=== PATIENT | female | born 1945 | race Caucasian/White ===

== ENCOUNTER → 2017-08-28 | Outpatient (CLI) | payer MEDICARE, OTHER ==
[2017-08-28 12:08] LABS: Basophils # (auto) 0.1 uL; Basophils % (auto) 1.8 % (0.0-2.0); Eosinophils # (auto) 0.2 uL; Eosinophils % (auto) 3.3 % (0.0-7.0); Hemoglobin 13.3 g/dL (12.2-16.2); Lymphocytes % (auto) 27.2 % (10.0-50.0); Mean Corpuscular Hemoglobin 32.2 pg (28.0-32.0); Mean Corpuscular Hgb Conc. 33.2 g/dL (32.0-36.0); Mean Corpuscular Volume 97.1 fL (80.0-100.0); Monocytes # (auto) 0.9 uL; Monocytes % (auto) 12.7 % (0.0-12.0); Nucleated Red Blood Cells % 0.2 %; Platelet Count (auto) 322 10^3/uL (140-450); Red Blood Cells 4.13 10^6/uL (4.0-5.20); Red Cell Distribution Width 14.2 % (11.8-14.3); White Blood Cell 7.3 10^3/uL (4.4-10.8)
[2017-08-28 12:26] LABS: BUN/Creatinine Ratio 19.8; Calcium 9.9 mg/dL (8.5-10.1); Potassium 4.1 mmol/L (3.5-5.1)
== END | disposition home or self-care (01) ==
LOC: LAB 09:43
PROVIDERS: ATTEND Internal Medicine Cardiovascular Disease
DX: D64.9 Anemia, unspecified (principal); I10 Essential (primary) hypertension
CPT/HCPCS: 36415; 80048; 85025

== ENCOUNTER → 2017-08-30 | Outpatient (CLI) | payer MEDICARE, OTHER ==
[~2017-08-30] MED LIST: FUROSEMIDE 20 MG/2 ML VIAL IV SCH; FUROSEMIDE 20 MG/2 ML VIAL ONE; FUROSEMIDE 40 MG/4 ML VIAL ONE
[2017-08-30 11:30] VITALS: BP 152/78
[2017-08-30 14:30] VITALS: BP 148/85
== END | disposition home or self-care (01) ==
LOC: CHF HDHVI 11:01
PROVIDERS: ATTEND Internal Medicine Cardiovascular Disease
DX: E87.70 Fluid overload, unspecified (principal); R60.0 Localized edema
CPT/HCPCS: 96365; 96366; G0463; J1940

== ENCOUNTER → 2017-09-01 | Outpatient (CLI) | payer MEDICARE, OTHER ==
[~2017-09-01] MED LIST changes: -FUROSEMIDE 20 MG/2 ML VIAL IV SCH; -FUROSEMIDE 20 MG/2 ML VIAL ONE; +FUROSEMIDE IV SCH; +SODIUM CHL 0.9% IV SCH
[2017-09-01 13:30] VITALS: BP 158/83
== END | disposition home or self-care (01) ==
LOC: CHF HDHVI 10:59
PROVIDERS: ATTEND Internal Medicine
DX: I11.0 Hypertensive heart disease with heart failure (principal); I50.9 Heart failure, unspecified; I25.10 Atherosclerotic heart disease of native coronary artery without angina pectoris; E78.5 Hyperlipidemia, unspecified
CPT/HCPCS: 93306; 96365; 96366; G0463; J1940

== ENCOUNTER → 2017-09-05 | Outpatient (CLI) | payer MEDICARE, OTHER ==
[2017-09-05 11:45] VITALS: BP 187/80
[2017-09-05 12:15] VITALS: BP 150/72
== END | disposition home or self-care (01) ==
LOC: Rad HDHVI 10:36
PROVIDERS: ATTEND Internal Medicine
DX: I82.3 Embolism and thrombosis of renal vein (principal)
CPT/HCPCS: 93970; G0463

== ENCOUNTER → 2018-03-30 | Outpatient (CLI) | payer MEDICARE, OTHER ==
[2018-03-30 12:30] LABS: Urine Blood Negative /uL (Negative); Urine Specific Gravity 1.013 (1.001-1.035)
[2018-03-30 12:42] LABS: Basophils # (auto) 0.1 uL; Basophils % (auto) 1.2 % (0.0-2.0); Eosinophils # (auto) 0.2 uL; Eosinophils % (auto) 3.9 % (0.0-7.0); Hematocrit 39.2 % (36.0-46.0); Hemoglobin 13.3 g/dL (12.2-16.2); Lymphocytes # (auto) 1.7 uL; Lymphocytes % (auto) 30.4 % (10.0-50.0); Mean Corpuscular Hemoglobin 32.5 pg (28.0-32.0); Mean Corpuscular Hgb Conc. 33.8 g/dL (32.0-36.0); Mean Corpuscular Volume 96.1 fL (80.0-100.0); Monocytes # (auto) 0.8 uL; Monocytes % (auto) 13.2 % (0.0-12.0); Neutrophils # (auto) 2.9 uL; Neutrophils % (auto) 51.3 % (37.0-80.0); Nucleated Red Blood Cells % 0.1 %; Platelet Count (auto) 301 10^3/uL (140-450); Red Blood Cells 4.08 10^6/uL (4.0-5.20); Red Cell Distribution Width 13.9 % (11.8-14.3); White Blood Cell 5.7 10^3/uL (4.4-10.8)
[2018-03-30 12:56] LABS: Albumin 3.7 g/dL (3.4-5.0); BUN/Creatinine Ratio 22.9; Bilirubin, Total 0.6 mg/dL (0.2-1.0); Calcium 9.4 mg/dL (8.5-10.1); Potassium 3.9 mmol/L (3.5-5.1)
[2018-03-30 13:03] LABS: Free T4 (Free Thyroxine) 1.66 ng/dL (0.89-1.76)
== END | disposition home or self-care (01) ==
LOC: LAB 08:59
PROVIDERS: ATTEND Internal Medicine
DX: Z00.01 Encounter for general adult medical examination with abnormal findings (principal); E03.9 Hypothyroidism, unspecified; E55.9 Vitamin D deficiency, unspecified; E11.9 Type 2 diabetes mellitus without complications; D51.9 Vitamin B12 deficiency anemia, unspecified; N39.0 Urinary tract infection, site not specified; I10 Essential (primary) hypertension
CPT/HCPCS: 36415; 80053; 80061; 81003; 82306; 82607; 83036; 84439; 84443; 85025; 87086

== ENCOUNTER → 2018-11-19 | Outpatient (CLI) | payer MEDICARE, OTHER ==
[2018-11-19 16:06] LABS: Urine Blood 1+ /uL (Negative); Urine Specific Gravity 1.021 (1.001-1.035)
[2018-11-19 16:12] LABS: Basophils # (auto) 0.2 uL; Basophils % (auto) 1.8 % (0.0-2.0); Eosinophils # (auto) 0.7 uL; Eosinophils % (auto) 7.6 % (0.0-7.0); Hematocrit 38.9 % (36.0-46.0); Hemoglobin 12.9 g/dL (12.2-16.2); Lymphocytes # (auto) 2.1 uL; Lymphocytes % (auto) 24.4 % (10.0-50.0); Mean Corpuscular Hemoglobin 31.2 pg (28.0-32.0); Mean Corpuscular Hgb Conc. 33.2 g/dL (32.0-36.0); Monocytes # (auto) 0.8 uL; Monocytes % (auto) 9.5 % (0.0-12.0); Neutrophils # (auto) 4.9 uL; Neutrophils % (auto) 56.7 % (37.0-80.0); Nucleated Red Blood Cells % 0.1 %; Platelet Count (auto) 370 10^3/uL (140-450); Red Blood Cells 4.14 10^6/uL (4.0-5.20); Red Cell Distribution Width 13.5 % (11.8-14.3); White Blood Cell 8.7 10^3/uL (4.4-10.8)
[2018-11-19 16:18] LABS: Free T4 (Free Thyroxine) 1.43 ng/dL (0.89-1.76)
[2018-11-19 16:23] LABS: Albumin 3.2 g/dL (3.4-5.0); Calcium 9.2 mg/dL (8.5-10.1); Potassium 3.5 mmol/L (3.5-5.1)
[2018-11-19 16:28] LABS: BUN/Creatinine Ratio 25.4; Bilirubin, Total 0.4 mg/dL (0.2-1.0); Total Protein 7.9 g/dL (6.4-8.2)
== END | disposition home or self-care (01) ==
LOC: LAB 10:27
PROVIDERS: ATTEND Internal Medicine
DX: N39.0 Urinary tract infection, site not specified (principal); E03.9 Hypothyroidism, unspecified; E55.9 Vitamin D deficiency, unspecified; D51.9 Vitamin B12 deficiency anemia, unspecified; Z79.899 Other long term (current) drug therapy
CPT/HCPCS: 36415; 80053; 80061; 81003; 82306; 82607; 83036; 84439; 84443; 85025

== ENCOUNTER → 2019-05-13 | Outpatient (CLI) | payer MEDICARE, OTHER ==
[2019-05-13 12:29] LABS: Free T4 (Free Thyroxine) 1.49 ng/dL (0.89-1.76)
[2019-05-13 12:32] LABS: T3 Total 0.75 ng/mL (0.60-1.81)
== END | disposition home or self-care (01) ==
LOC: LAB 10:28
PROVIDERS: ATTEND Internal Medicine
DX: E03.9 Hypothyroidism, unspecified (principal)
CPT/HCPCS: 36415; 84436; 84439; 84443; 84480

== ENCOUNTER → 2019-07-26 | Outpatient (CLI) | payer MEDICARE, OTHER ==
[~2019-07-26] MED LIST changes: -FUROSEMIDE 40 MG/4 ML VIAL ONE; -FUROSEMIDE IV SCH; +HYDR12.56 PO; +LEVO112T4 PO; +LISI40TA PO; -SODIUM CHL 0.9% IV SCH
[2019-07-26 15:40] LABS: Basophils # (auto) 0.2 uL; Eosinophils # (auto) 0.1 uL; Monocytes # (auto) 0.9 uL; Neutrophils # (auto) 5.6 uL; Nucleated Red Blood Cells % 0.1 %; White Blood Cell 8.4 10^3/uL (4.4-10.8)
[2019-07-26 15:42] LABS: Basophils % (auto) 2.9 % (0.0-2.0); Eosinophils % (auto) 1.1 % (0.0-7.0); Hematocrit 34.4 % (36.0-46.0); Hemoglobin 11.2 g/dL (12.2-16.2); Lymphocytes # (auto) 1.5 uL; Lymphocytes % (auto) 18.3 % (10.0-50.0); Mean Corpuscular Hemoglobin 28.8 pg (28.0-32.0); Mean Corpuscular Hgb Conc. 32.6 g/dL (32.0-36.0); Mean Corpuscular Volume 88.3 fL (80.0-100.0); Neutrophils % (auto) 66.7 % (37.0-80.0); Platelet Count (auto) 466 10^3/uL (140-450); Red Blood Cells 3.89 10^6/uL (4.0-5.20); Red Cell Distribution Width 19.6 % (11.8-14.3)
[2019-07-26 15:51] LABS: Albumin 2.4 g/dL (3.4-5.0); Calcium 9.6 mg/dL (8.5-10.1)
[2019-07-26 15:55] LABS: BUN/Creatinine Ratio 8.1; Bilirubin, Total 0.4 mg/dL (0.2-1.0); Total Protein 7.9 g/dL (6.4-8.2)
[2019-07-26 16:09] LABS: Potassium 2.8 mmol/L (3.5-5.1)
== END | disposition home or self-care (01) ==
LOC: Rad HDHVI 13:01
PROVIDERS: ATTEND Internal Medicine Cardiovascular Disease
DX: J98.11 Atelectasis (principal); D64.9 Anemia, unspecified; I10 Essential (primary) hypertension; K75.0 Abscess of liver; J90 Pleural effusion, not elsewhere classified; L92.8 Other granulomatous disorders of the skin and subcutaneous tissue; M47.899 Other spondylosis, site unspecified
CPT/HCPCS: 36415; 74150; 80053; 85025

== ENCOUNTER → 2019-08-28 | Outpatient (CLI) | payer MEDICARE, OTHER ==
[~2019-08-28] MED LIST changes: +IOHEXOL 350 MG/ML 100ML IJ ONE; +READI-CAT 2 (BARIUM SULF)(VANILLA SMOOTHIE) 450ML ONE
[2019-08-28 11:49] VITALS: BP 105/69
--- NOTE | 2019-08-28 12:00 | NUR ---
IV insertion IV access obtained, via clean sterile technique by inserting 22 gauge catheter at RW after 1 attempt(s). IV secured properly. No trauma to site. Patient tolerated procedure well. STAT LABS SENT
[2019-08-28 13:10] LABS: Basophils # (auto) 0.2 uL; Basophils % (auto) 2.6 % (0.0-2.0); Eosinophils # (auto) 0.3 uL; Eosinophils % (auto) 3.4 % (0.0-7.0); Hematocrit 43.5 % (36.0-46.0); Hemoglobin 14.1 g/dL (12.2-16.2); Lymphocytes # (auto) 1.8 uL; Lymphocytes % (auto) 21.6 % (10.0-50.0); Mean Corpuscular Hemoglobin 30.1 pg (28.0-32.0); Mean Corpuscular Hgb Conc. 32.4 g/dL (32.0-36.0); Monocytes # (auto) 0.7 uL; Monocytes % (auto) 8.4 % (0.0-12.0); Neutrophils # (auto) 5.2 uL; Platelet Count (auto) 380 10^3/uL (140-450); Red Blood Cells 4.68 10^6/uL (4.0-5.20); Red Cell Distribution Width 19.6 % (11.8-14.3); White Blood Cell 8.2 10^3/uL (4.4-10.8)
[2019-08-28 13:30] LABS: BUN/Creatinine Ratio 23.3; Calcium 12.4 mg/dL (8.5-10.1); Potassium 5.1 mmol/L (3.5-5.1)
--- NOTE | 2019-08-28 13:50 | NUR ---
LAB RESULTS IN [facility] 1.63, INFORMED, IV CONTRAST CHANGED TO ORAL CONTRAST.
--- NOTE | 2019-08-28 14:15 | NUR ---
IV removal IV DC'd with sterile technique, catheter fully intact. Pressure dressing applied to site. Patient tolerated procedure well.
[2019-08-28 14:30] VITALS: BP 129/76
--- NOTE | 2019-08-28 14:30 | NUR ---
[facility] Discharge Instructions See e-MAR for any mediations given with this visit. Patient education given on disease process. Patient verbalized understanding. Previous labs reviewed. Patient discharged in stable condition with after care instructions and follow up appointment.
== END | disposition home or self-care (01) ==
LOC: Rad HDHVI 11:40
PROVIDERS: ATTEND Internal Medicine Cardiovascular Disease
DX: K75.0 Abscess of liver (principal); I12.9 Hypertensive chronic kidney disease with stage 1 through stage 4 chronic kidney disease, or unspecified chronic kidney disease; N18.3 Chronic kidney disease, stage 3 (moderate); K57.90 Diverticulosis of intestine, part unspecified, without perforation or abscess without bleeding; R10.9 Unspecified abdominal pain; D64.9 Anemia, unspecified; E03.9 Hypothyroidism, unspecified; I25.2 Old myocardial infarction; Z79.02 Long term (current) use of antithrombotics/antiplatelets
CPT/HCPCS: 36415; 74150; 80048; 85025; G0463; Q9967

== ENCOUNTER → 2019-12-13 | Outpatient (CLI) | payer MEDICARE, OTHER ==
[~2019-12-13] MED LIST changes: -IOHEXOL 350 MG/ML 100ML IJ ONE; -READI-CAT 2 (BARIUM SULF)(VANILLA SMOOTHIE) 450ML ONE
== END | disposition home or self-care (01) ==
LOC: Rad HDHVI 10:57
PROVIDERS: ATTEND Internal Medicine Cardiovascular Disease
DX: R07.9 Chest pain, unspecified (principal); I10 Essential (primary) hypertension; R20.0 Anesthesia of skin
CPT/HCPCS: 93306

== ENCOUNTER → 2020-01-06 | Outpatient (CLI) | payer MEDICARE, OTHER ==
[~2020-01-06] VITALS: Ht 162.6 cm; Wt 86.2 kg
[~2020-01-06] MED LIST changes: +ADENOSINE 72 MG in GIVE UN-DILUTED 0 ML IV ONE; +ADENOSINE 90 MG/30 ML INJ IV ONE; -LISI40TA PO; +LISI40TA11 PO
== END | disposition home or self-care (01) ==
LOC: Rad HDHVI 13:19
PROVIDERS: ATTEND Internal Medicine Cardiovascular Disease
DX: I10 Essential (primary) hypertension (principal); Z82.49 Family history of ischemic heart disease and other diseases of the circulatory system
CPT/HCPCS: 78452; 93005; 96374; 96375; A9500; J0153

== ENCOUNTER → 2020-01-10 | Outpatient (CLI) | payer MEDICARE, OTHER ==
[~2020-01-10] MED LIST changes: -ADENOSINE 72 MG in GIVE UN-DILUTED 0 ML IV ONE; -ADENOSINE 90 MG/30 ML INJ IV ONE; +READI-CAT 2 (BARIUM SULF)(VANILLA SMOOTHIE) 450ML ONE
== END | disposition home or self-care (01) ==
LOC: Rad HDHVI 10:57
PROVIDERS: ATTEND Internal Medicine Cardiovascular Disease
DX: I70.0 Atherosclerosis of aorta (principal); R10.9 Unspecified abdominal pain; K86.89 Other specified diseases of pancreas; D73.89 Other diseases of spleen; K57.30 Diverticulosis of large intestine without perforation or abscess without bleeding
CPT/HCPCS: 74176

== ENCOUNTER → 2020-01-16 | Outpatient (CLI) | payer MEDICARE, OTHER ==
[~2020-01-16] MED LIST changes: +LISI40TA PO; -LISI40TA11 PO; -READI-CAT 2 (BARIUM SULF)(VANILLA SMOOTHIE) 450ML ONE
[2020-01-16 11:07] LABS: Calcium 10.7 mg/dL (8.5-10.1)
[2020-01-16 11:09] LABS: BUN/Creatinine Ratio 25.9
[2020-01-16 11:17] LABS: Potassium 4.2 mmol/L (3.5-5.1)
== END | disposition home or self-care (01) ==
LOC: LAB 09:59
PROVIDERS: ATTEND Internal Medicine Cardiovascular Disease
DX: R79.9 Abnormal finding of blood chemistry, unspecified (principal)
CPT/HCPCS: 36415; 80048

== ENCOUNTER → 2020-07-16 | Outpatient (CLI) | payer MEDICARE, OTHER ==
[~2020-07-16] MED LIST changes: -LISI40TA PO; +LISI40TA11 PO
[2020-07-16 12:01] LABS: Urine Blood Negative /uL (Negative); Urine Specific Gravity 1.023 (1.001-1.035)
[2020-07-16 12:11] LABS: Basophils # (auto) 0.2 10 ^3/uL (0-0.2); Basophils % (auto) 2.5 % (0.0-2.0); Eosinophils # (auto) 0.4 10 ^3/uL (0-0.8); Eosinophils % (auto) 6.5 % (0.0-7.0); Hemoglobin 11.4 g/dL (12.2-16.2); Lymphocytes # (auto) 2.8 10 ^3/uL (0.4-5.4); Lymphocytes % (auto) 43.8 % (10.0-50.0); Mean Corpuscular Hemoglobin 32.3 pg (28.0-32.0); Mean Corpuscular Hgb Conc. 32.6 g/dL (32.0-36.0); Mean Corpuscular Volume 99.2 fL (80.0-100.0); Monocytes # (auto) 0.6 10 ^3/uL (0-1.3); Monocytes % (auto) 9.8 % (0.0-12.0); Neutrophils # (auto) 2.4 10 ^3/uL (1.6-8.6); Neutrophils % (auto) 37.4 % (37.0-80.0); Platelet Count (auto) 258 10^3/uL (140-450); Red Blood Cells 3.53 10^6/uL (4.0-5.20); Red Cell Distribution Width 13.8 % (11.8-14.3); White Blood Cell 6.4 10^3/uL (4.4-10.8)
[2020-07-16 12:16] LABS: Potassium 4.2 mmol/L (3.5-5.1)
[2020-07-16 12:24] LABS: Albumin 3.5 g/dL (3.4-5.0); BUN/Creatinine Ratio 20.6; Bilirubin, Total 0.4 mg/dL (0.2-1.0); Calcium 10.1 mg/dL (8.5-10.1); Total Protein 7.4 g/dL (6.4-8.2)
[2020-07-16 12:27] LABS: Free T4 (Free Thyroxine) 1.25 ng/dL (0.89-1.76)
== END | disposition home or self-care (01) ==
LOC: LAB 11:02
PROVIDERS: ATTEND Internal Medicine Cardiovascular Disease
DX: D51.3 Other dietary vitamin B12 deficiency anemia (principal); I10 Essential (primary) hypertension; E11.9 Type 2 diabetes mellitus without complications; E55.9 Vitamin D deficiency, unspecified; R00.2 Palpitations; R53.1 Weakness; R30.0 Dysuria
CPT/HCPCS: 36415; 80053; 80061; 81003; 82306; 82607; 83036; 84439; 84443; 85025; 87086

== ENCOUNTER → 2020-12-31 | Outpatient (CLI) | payer MEDICARE, OTHER | END | disposition home or self-care (01) | LOC: Rad HDHVI 13:02 | PROVIDERS: ATTEND Internal Medicine Cardiovascular Disease | DX: I10 Essential (primary) hypertension (principal); R06.02 Shortness of breath | CPT/HCPCS: 93306 ==

== ENCOUNTER → 2021-01-07 | Outpatient (CLI) | payer MEDICARE, OTHER ==
[2021-01-07 11:41] LABS: Basophils # (auto) 0.1 10 ^3/uL (0-0.2); Basophils % (auto) 1.2 % (0.0-2.0); Eosinophils # (auto) 0.2 10 ^3/uL (0-0.8); Eosinophils % (auto) 2.8 % (0.0-7.0); Hematocrit 35.4 % (36.0-46.0); Hemoglobin 11.9 g/dL (12.2-16.2); Lymphocytes # (auto) 3.1 10 ^3/uL (0.4-5.4); Lymphocytes % (auto) 38.7 % (10.0-50.0); Mean Corpuscular Hemoglobin 33.5 pg (28.0-32.0); Mean Corpuscular Hgb Conc. 33.6 g/dL (32.0-36.0); Mean Corpuscular Volume 99.7 fL (80.0-100.0); Monocytes # (auto) 0.7 10 ^3/uL (0-1.3); Monocytes % (auto) 9.1 % (0.0-12.0); Neutrophils # (auto) 3.9 10 ^3/uL (1.6-8.6); Neutrophils % (auto) 48.2 % (37.0-80.0); Platelet Count (auto) 223 10^3/uL (140-450); Red Blood Cells 3.55 10^6/uL (4.0-5.20); Red Cell Distribution Width 13.9 % (11.8-14.3); Urine Blood Negative /uL (Negative); Urine Specific Gravity 1.008 (1.001-1.035)
[2021-01-07 11:49] LABS: Albumin 3.6 g/dL (3.4-5.0); Calcium 9.5 mg/dL (8.5-10.1); Potassium 4.2 mmol/L (3.5-5.1)
[2021-01-07 11:55] LABS: BUN/Creatinine Ratio 30.4; Bilirubin, Total 0.6 mg/dL (0.2-1.0); Total Protein 7.3 g/dL (6.4-8.2)
[2021-01-07 12:00] LABS: Free T4 (Free Thyroxine) 1.57 ng/dL (0.89-1.76)
== END | disposition home or self-care (01) ==
LOC: LAB 09:34
PROVIDERS: ATTEND Internal Medicine Cardiovascular Disease
DX: D51.3 Other dietary vitamin B12 deficiency anemia (principal); D64.9 Anemia, unspecified; E11.9 Type 2 diabetes mellitus without complications; E55.9 Vitamin D deficiency, unspecified; I10 Essential (primary) hypertension; R00.2 Palpitations; R53.1 Weakness; R30.0 Dysuria
CPT/HCPCS: 36415; 80053; 80061; 81003; 82306; 82607; 83036; 84439; 84443; 85025

== ENCOUNTER → 2022-03-07 | Outpatient (CLI) | payer MEDICARE, OTHER | END | disposition home or self-care (01) | LOC: Rad HDHVI 13:00 | PROVIDERS: ATTEND Internal Medicine Cardiovascular Disease | DX: I34.0 Nonrheumatic mitral (valve) insufficiency (principal); R07.89 Other chest pain; R06.02 Shortness of breath | CPT/HCPCS: 93306 ==

== ENCOUNTER → 2022-03-21 | Outpatient (CLI) | payer MEDICARE, OTHER | END | disposition home or self-care (01) | LOC: Rad HDHVI 11:04 | PROVIDERS: ATTEND Internal Medicine Cardiovascular Disease | DX: E78.5 Hyperlipidemia, unspecified (principal); I10 Essential (primary) hypertension | CPT/HCPCS: 93880 ==

== ENCOUNTER → 2022-04-05 | Outpatient (CLI) | payer MEDICARE, OTHER ==
[2022-04-05 12:28] LABS: Urine Blood Negative /uL (Negative); Urine Specific Gravity 1.012 (1.001-1.035)
[2022-04-05 12:37] LABS: Basophils # (auto) 0.1 10 ^3/uL (0-0.2); Basophils % (auto) 1.9 % (0.0-2.0); Eosinophils # (auto) 0.3 10 ^3/uL (0-0.8); Eosinophils % (auto) 3.9 % (0.0-7.0); Hematocrit 36.3 % (36.0-46.0); Hemoglobin 11.7 g/dL (12.2-16.2); Lymphocytes # (auto) 2.7 10 ^3/uL (0.4-5.4); Lymphocytes % (auto) 37.9 % (10.0-50.0); Mean Corpuscular Hemoglobin 30.7 pg (28.0-32.0); Mean Corpuscular Hgb Conc. 32.1 g/dL (32.0-36.0); Mean Corpuscular Volume 95.7 fL (80.0-100.0); Monocytes # (auto) 0.7 10 ^3/uL (0-1.3); Monocytes % (auto) 10.3 % (0.0-12.0); Neutrophils # (auto) 3.2 10 ^3/uL (1.6-8.6); Nucleated Red Blood Cells % 0.1 %; Red Cell Distribution Width 13.8 % (11.8-14.3)
[2022-04-05 13:02] LABS: Albumin 3.3 g/dL (3.4-5.0); BUN/Creatinine Ratio 24.3; Bilirubin, Total 0.5 mg/dL (0.2-1.0); Calcium 10.6 mg/dL (8.5-10.1); Total Protein 7.6 g/dL (6.4-8.2)
[2022-04-05 13:10] LABS: Free T4 (Free Thyroxine) 2.09 ng/dL (0.89-1.76)
== END | disposition home or self-care (01) ==
LOC: LAB 10:12
PROVIDERS: ATTEND Internal Medicine Cardiovascular Disease
DX: I10 Essential (primary) hypertension (principal); E55.9 Vitamin D deficiency, unspecified; N39.0 Urinary tract infection, site not specified; D51.3 Other dietary vitamin B12 deficiency anemia; D64.9 Anemia, unspecified; E11.9 Type 2 diabetes mellitus without complications; R00.2 Palpitations; R53.1 Weakness; R30.0 Dysuria
CPT/HCPCS: 36415; 80053; 80061; 81003; 82306; 82607; 83036; 84439; 84443; 85025; 87086; 87088; 87186

== ENCOUNTER → 2022-08-17 | Outpatient (CLI) | payer MEDICARE, OTHER | END | disposition home or self-care (01) | LOC: LAB 10:31 | PROVIDERS: ATTEND Internal Medicine Cardiovascular Disease | DX: E03.9 Hypothyroidism, unspecified (principal) | CPT/HCPCS: 36415; 84439; 84443 ==

== ENCOUNTER → 2022-11-14 | Outpatient (CLI) | payer MEDICARE, OTHER ==
[~2022-11-14] MED LIST changes: +B CO OR; +BIOTPOW17 XX; +CALC600T16 PO; +CHOL50007 PO; +KRIL1000 PO; +LACTCAP35 OR; +MULT-733 PO; +POM; +POTA99TA3 PO
[2022-11-14 12:20] VITALS: BP 148/77
[2022-11-14 12:36] VITALS: BP 141/74
== END | disposition home or self-care (01) ==
LOC: Rad HDHVI 12:08
PROVIDERS: ATTEND Internal Medicine Cardiovascular Disease
DX: J84.10 Pulmonary fibrosis, unspecified (principal); R06.02 Shortness of breath; R00.1 Bradycardia, unspecified
CPT/HCPCS: 71046; 93005; G0463

== ENCOUNTER 2022-11-17 08:44 | Day surgery (SDC) | payer MEDICARE, OTHER ==
[2022-11-14 15:17] LABS: Basophils # (auto) 0.1 10 ^3/uL (0-0.2); Basophils % (auto) 1.2 % (0.0-2.0); Eosinophils # (auto) 0.1 10 ^3/uL (0-0.8); Eosinophils % (auto) 1.1 % (0.0-7.0); Hematocrit 41.8 % (36.0-46.0); Hemoglobin 14.2 g/dL (12.2-16.2); Lymphocytes # (auto) 2.6 10 ^3/uL (0.4-5.4); Lymphocytes % (auto) 28.2 % (10.0-50.0); Mean Corpuscular Hemoglobin 32.6 pg (28.0-32.0); Mean Corpuscular Volume 95.8 fL (80.0-100.0); Monocytes # (auto) 0.8 10 ^3/uL (0-1.3); Monocytes % (auto) 8.4 % (0.0-12.0); Neutrophils # (auto) 5.6 10 ^3/uL (1.6-8.6); Neutrophils % (auto) 61.1 % (37.0-80.0); Nucleated Red Blood Cells % 0.1 %; Red Blood Cells 4.37 10^6/uL (4.0-5.20); Red Cell Distribution Width 13.3 % (11.8-14.3); White Blood Cell 9.2 10^3/uL (4.4-10.8)
[2022-11-14 15:38] LABS: Partial Thromboplastin Time 25.1 sec (24.6-33.4)
[2022-11-14 16:16] LABS: Calcium 11.5 mg/dL (8.5-10.1); Potassium 3.9 mmol/L (3.5-5.1)
[2022-11-14 16:17] LABS: BUN/Creatinine Ratio 26.8 (10.0-20.0)
[~2022-11-17] VITALS: Ht 162.6 cm; Wt 83.9 kg
[~2022-11-17 08:44] MED LIST changes: -HYDR12.56 PO
[2022-11-17] MEDS ORDERED: VANCOMYCIN 1GM/250ML 250 ML IV ONE ×2 (10:00→13:00)
[2022-11-17] MEDS ORDERED: VANCOMYCIN HCL 1000 MG VL ONE (12:59)
[2022-11-17] MEDS ORDERED: MIDAZOLAM HCL 2MG/2ML 2ml VIAL (1mg/ml) ONE (13:00)
[2022-11-17] MEDS ORDERED: fentaNYL CITRATE 100 MCG/2 ML VL ONE (13:00)
[2022-11-17] MEDS ORDERED: LIDOCAINE 2%HCL (LOCAL ANESTH.) INJ 20ML MDV ONE (13:32)
[2022-11-17 14:30] VITALS: BP 124/82
[2022-11-17 14:48] VITALS: BP 138/78
[2022-11-17 15:03] VITALS: BP 143/80
[2022-11-17 15:19] VITALS: BP 151/87
== END 2022-11-17 16:20 | disposition home or self-care (01) ==
LOC: CATH 08:44
PROVIDERS: ATTEND Internal Medicine Cardiovascular Disease
DX: I49.5 Sick sinus syndrome (principal); I48.91 Unspecified atrial fibrillation; E78.5 Hyperlipidemia, unspecified; I48.92 Unspecified atrial flutter; Z79.899 Other long term (current) drug therapy; Z79.01 Long term (current) use of anticoagulants; I48.0 Paroxysmal atrial fibrillation
CPT/HCPCS: 33208; 36415; 71045; 80048; 85025; 85610; 85730; C1785; C1894; C1898; J2250; J3010; J3370; 99152

== ENCOUNTER → 2022-11-18 | Outpatient (CLI) | payer MEDICARE, OTHER | END | disposition home or self-care (01) | LOC: Rad HDHVI 15:00 | PROVIDERS: ATTEND Internal Medicine Cardiovascular Disease | DX: T81.9XXA Unspecified complication of procedure, initial encounter (principal); Z95.0 Presence of cardiac pacemaker; Z98.890 Other specified postprocedural states; X58.XXXA Exposure to other specified factors, initial encounter; Y93.89 Activity, other specified; Y92.89 Other specified places as the place of occurrence of the external cause; Y99.8 Other external cause status | CPT/HCPCS: 71046 ==

== ENCOUNTER → 2023-05-05 | Outpatient (CLI) | payer MEDICARE, OTHER ==
[~2023-05-05] MED LIST changes: -LISI40TA11 PO; +LISI40TA16 PO
== END | disposition home or self-care (01) ==
LOC: Rad HDHVI 11:02
PROVIDERS: ATTEND Internal Medicine Cardiovascular Disease
DX: R51.9 Headache, unspecified (principal)
CPT/HCPCS: 70450

== ENCOUNTER → 2023-05-08 | Outpatient (CLI) | payer MEDICARE, OTHER | END | disposition home or self-care (01) | LOC: Rad HDHVI 14:00 | PROVIDERS: ATTEND Internal Medicine Cardiovascular Disease | DX: I34.81 Nonrheumatic mitral (valve) annulus calcification (principal); I11.9 Hypertensive heart disease without heart failure | CPT/HCPCS: 93306 ==

== ENCOUNTER → 2023-05-17 | Outpatient (CLI) | payer MEDICARE, OTHER | END | disposition home or self-care (01) | LOC: Rad HDHVI 12:54 | PROVIDERS: ATTEND Internal Medicine Cardiovascular Disease | DX: I10 Essential (primary) hypertension (principal) | CPT/HCPCS: 93880 ==

== ENCOUNTER → 2024-07-18 | Outpatient (CLI) | payer MEDICARE, OTHER ==
[~2024-07-18] MED LIST changes: -KRIL1000 PO; +KRIL1CAP15 PO
== END | disposition home or self-care (01) ==
LOC: Rad HDHVI 09:01
PROVIDERS: ATTEND Internal Medicine Cardiovascular Disease
DX: I11.0 Hypertensive heart disease with heart failure (principal); I50.23 Acute on chronic systolic (congestive) heart failure
CPT/HCPCS: 93306

== ENCOUNTER → 2024-07-29 | Outpatient (CLI) | payer MEDICARE, OTHER ==
[~2024-07-29] VITALS: Ht 162.6 cm; Wt 88.5 kg
[~2024-07-29] MED LIST changes: +ADENOSINE 74 MG in GIVE UN-DILUTED 0 ML IV ONE; +ADENOSINE 90 MG/30 ML INJ IV ONE; +SOTA80TA PO
== END | disposition home or self-care (01) ==
LOC: Rad HDHVI 13:58
PROVIDERS: ATTEND Internal Medicine Cardiovascular Disease
DX: R06.02 Shortness of breath (principal); I48.0 Paroxysmal atrial fibrillation; R00.2 Palpitations; I49.5 Sick sinus syndrome; I50.23 Acute on chronic systolic (congestive) heart failure; I11.0 Hypertensive heart disease with heart failure; E78.00 Pure hypercholesterolemia, unspecified; Z82.49 Family history of ischemic heart disease and other diseases of the circulatory system; Z95.0 Presence of cardiac pacemaker
CPT/HCPCS: 78452; 93005; 96374; 96375; A9500; J0153

== ENCOUNTER 2024-08-05 07:01 | Inpatient (IN) | payer MEDICARE, OTHER ==
[~2024-08-05] VITALS: Ht 162.6 cm; Wt 99.9 kg
[~2024-08-05 07:01] MED LIST changes: -ADENOSINE 74 MG in GIVE UN-DILUTED 0 ML IV ONE; -ADENOSINE 90 MG/30 ML INJ IV ONE; -POM
[2024-08-05] MEDS: ceFAZolin 2 GM/D5W100ml 100 ML IV ONE (07:34)
[2024-08-05] MEDS: CELECOXIB 100 MG CAP ONE (08:05)
[2024-08-05] MEDS: CEFEPIME 1GM/ 50ML 50 ML IV ONE (08:26)
[2024-08-05] MEDS: ACETAMINOPHEN IV 1000 MG/100ML (10MG/ML) IV ONE (08:30)
[2024-08-05] MEDS: PREGABALIN CAPSULE 75 MG CAP PO ONE (08:30)
[2024-08-05] MEDS: CELECOXIB 100 MG CAP PO ONE (08:30)
[2024-08-05] MEDS ORDERED: MORPHINE SULF PF 5 MG/10 ML VIAL ONE (08:50)
[2024-08-05] MEDS: TRANEXAMIC ACID 20 ML ONE (08:51)
[2024-08-05] MEDS: KETOROLAC TROMETH 30 MG/ML 1ML VIAL ONE (08:51)
[2024-08-05] MEDS ORDERED: fentaNYL CITRATE 100 MCG/2 ML VL ONE (09:00)
[2024-08-05] MEDS ORDERED: MIDAZOLAM HCL 2MG/2ML 2ml VIAL (1mg/ml) ONE (09:00)
[2024-08-05] MEDS: LACTATED RINGER'S 1,000 ML IV SCH (09:15)
[2024-08-05] MEDS ORDERED: MORPHINE SULFATE INJ 2 MG/ml SYRG IV PRN (09:15)
[2024-08-05] MEDS ORDERED: HYDROmorphone HCL 2 MG/ML VL/or syr IV PRN ×3 (09:15→14:45)
[2024-08-05] MEDS ORDERED: ONDANSETRON HCL 4 MG/2 ML VIAL IV PRN (09:15)
[2024-08-05] MEDS ORDERED: NITROGLYCERIN 0.4 MG SL TAB SL PRN (09:15)
[2024-08-05] MEDS ORDERED: OXYCODONE W/ ACETAMINOPHEN 5/325MG TABLET PO PRN (09:15)
[2024-08-05] MEDS ORDERED: ePHEDrine SULFATE 50 MG/ML AMP ONE (09:48)
[2024-08-05] MEDS: SOTALOL HCL 80 MG TAB PO SCH (10:00)
[2024-08-05] MEDS: DOCUSATE SOD 100 MG CAP PO SCH (10:00)
[2024-08-05] MEDS: ENOXAPARIN SOD 40 MG/0.4 ML SYRINGE SC SCH (10:00)
[2024-08-05] MEDS: CEFEPIME 1GM/ 50ML 50 ML IV SCH (10:00)
[2024-08-05] MEDS: BUPIVACAINE 0.25% INJ 50ML VIAL ONE (10:18)
[2024-08-05] MEDS: VANCOMYCIN HCL 1000 MG VL IR ONE (10:18)
[2024-08-05 10:42] VITALS: PULSE 91; RESP 12; O2SAT 100
[2024-08-05] MEDS: ONDANSETRON HCL 4 MG/2 ML VIAL IV ONE (11:00)
[2024-08-05] MEDS ORDERED: ACETAMINOPHEN IV 1000 MG/100ML (10MG/ML) IV PRN (11:00)
--- NOTE | 2024-08-05 11:13 | DVH ---
CLINICAL INFORMATION: Postop right total knee arthroplasty. TECHNIQUE: 3 views of the right knee were obtained. COMPARISON: None FINDINGS: Postsurgical changes of right total knee arthroplasty. The prosthesis is in satisfactory al ignment and position. Soft tissue swelling and gas within the soft tissues adjacent to the surgical s ite consistent with recent postoperative changes. Cutaneous dalila overlie the anterior aspect of th e right knee. IMPRESSION: Postsurgical changes of right total knee arthroplasty in satisfactory alignment and position as descr ibed above.
[2024-08-05] MEDS ORDERED: ACCU-CHEK COMFORT CURVE STRIP VI SCH (11:30)
--- NOTE | 2024-08-05 12:27 | DVHPN2 ---
Progress Note - Dictate Date Seen: Aug 05, 2023 Medical Necessity Reason Pt with a Central, PICC or Fol: No Subjective PT WELL KNOWN TO ME S/P TOTAL RIGHT KNEE ARTHROPLASTY POD 0 ON 08/05/24 The patient who is a 77-year-old with history of hypertension, hypothyroidism. Now with sick sinus syndrome, underlying rhythm is paroxysmal atrial fibrillation, atrial flutter with variable rate and with beta blockade she becomes bradycardic with pauses greater than 2.4 seconds. The patient is now to undergo dual chamber permanent pacemaker implantation. The patient aware of the risks and benefits. She understands and agrees. PERTINENT MEDICAL HISTORY: Significant for obesity. REVIEW OF SYSTEMS: Denies any melena, hematochezia, no bleeding diathesis. No hematemesis, hemoptysis. No history of hematuria. No renal disease. At this time, denies any lung disease. Denies any CVAs, thromboembolic event. Denies any seizure disorder, movement disorder. No neurological disorders. Denies any GI symptoms. No liver disease. No renal dysfunction. No history of IBS. No history of IBD. No history of any bleeding at this time. No pancreatic issues as well. No neurological issues as stated above. She has sick sinus syndrome with shortness of breath, lethargy and fatigue. Denies any fever or chills. She is COVID negative. Denies any recent infectious etiology. No UTI demonstrated. No bladder issues as well. vital signs Vital Sign Date Time Temp Pulse Resp B/P (MAP) Pulse Ox O2 Delivery O2 Flow Rate FiO2 08/05/24 11:10 91 12 88/52 (64) 100 08/05/24 10:42 97.2 97.2 08/05/24 10:42 Mask 7.0 100 medications Current Medications Medications Dose Ordered Sig/María Route Start Time Stop Time Status Last Admin Dose Admin Levothyroxine Sodium 112 mcg QAM PO 08/06/24 07:00 Sotalol HCl 40 mg BID PO 08/05/24 10:00 Lisinopril 40 mg DAILY PO 08/06/24 10:00 Patient Own Medication 99 mg DAILY PO 08/05/24 10:00 UNV Lactated Ringer's 1,000 ml @ 100 mls/hr Q10H IV 08/05/24 09:15 Sodium Chloride 10 ml Q8HR IV 08/05/24 14:00 Cefazolin Sodium 50 ml @ 50 mls/hr Q6H IV 08/05/24 09:15 08/05/24 22:14 Oxycodone/ Acetaminophen 1 tab Q4HP PRN PO 08/05/24 09:15 Hydromorphone HCl 1 mg Q2HP PRN IV 08/05/24 09:15 Ondansetron HCl 4 mg Q6HP PRN IV 08/05/24 09:15 Docusate Sodium 100 mg Q12HR PO 08/05/24 10:00 Diagnostic Test (Pha) 1 strip ACHS 08/05/24 11:30 Enoxaparin Sodium 40 mg DAILY SC 08/05/24 10:00 Nitroglycerin 0.4 mg Q5MINP PRN SL 08/05/24 09:15 Morphine Sulfate 2 mg Q30M PRN IV 08/05/24 09:15 Cefepime HCl 50 ml @ 12.5 mls/hr DAILY IV 08/05/24 10:00 objective VITAL SIGNS: Blood pressure is 88/70, pulse of 70, O2 saturation 95% on room air. HEENT: Pupils are reactive. Funduscopic exam is benign. No papilledema, no AV nicking, no exudates. Sclerae are anicteric. Conjunctivae are within normal limits. Extraocular muscles are intact. Tympanic membranes are negative. No sinus tenderness. Oral mucosa moist. Posterior pharynx without any exudate. NECK: No JVD appreciated. Carotid pulses are 2+ symmetrical. No cervical adenopathy, no supraclavicular adenopathy. PULMONARY: Clear to auscultation. CARDIOVASCULAR: Irregularly irregular at this time. PMI is not displaced. There are no murmurs or gallops appreciated. ABDOMEN: Soft, nontender, normal bowel sounds. Liver approximately 5 cm. Spleen tip nonpalpable. No epigastric tenderness. No CVA tenderness. No suprapubic tenderness. Stool guaiac is negative. NEUROLOGIC: The patient is intact. EXTREMITIES: 1+ pulses, 1+ edema. EXT: S/P Rt knee total arthroplasty Problem List S/P RIGHT TOTAL KNEE ARTHROPLASTY HTN SSS S/P PPI AFIB HYPERCOAGULABLE STATE Assessment/Plan PT MONITOR H/H DVT PROPHYLAXIS Plan discussed with: Patient Critical Care Time(min): 35 SHILPA LO MD Aug 05, 2024 12:27
[2024-08-05] MEDS: ceFAZolin 1GM/50ML 50 ML IV SCH (13:06)
[2024-08-05] MEDS: SODIUM CHLOR 0.9% PF (SALINE LOCK) 10ML VIAL/SYR IV SCH (14:00)
--- NOTE | 2024-08-05 14:42 | DVHHP2 ---
Review of Systems Allergies: Coded Allergies: Furosemide (Verified Allergy, Intermediate, 11/14/22) itching/hives Aspirin (Verified Allergy, Unknown, 11/14/22) Ciprofloxacin (Verified Allergy, Unknown, 11/14/22) Medications Current Medications Medications Dose Ordered Sig/María Route Start Time Stop Time Status Last Admin Dose Admin Levothyroxine Sodium 112 mcg QAM PO 08/06/24 07:00 Sotalol HCl 40 mg BID PO 08/05/24 10:00 Lisinopril 40 mg DAILY PO 08/06/24 10:00 Patient Own Medication 99 mg DAILY PO 08/05/24 10:00 UNV Lactated Ringer's 1,000 ml @ 100 mls/hr Q10H IV 08/05/24 09:15 Sodium Chloride 10 ml Q8HR IV 08/05/24 14:00 Cefazolin Sodium 50 ml @ 50 mls/hr Q6H IV 08/05/24 09:15 08/05/24 22:14 08/05/24 13:06 50 MLS/HR Oxycodone/ Acetaminophen 1 tab Q4HP PRN PO 08/05/24 09:15 Hydromorphone HCl 1 mg Q2HP PRN IV 08/05/24 09:15 Ondansetron HCl 4 mg Q6HP PRN IV 08/05/24 09:15 Docusate Sodium 100 mg Q12HR PO 08/05/24 10:00 Diagnostic Test (Pha) 1 strip ACHS 08/05/24 11:30 Enoxaparin Sodium 40 mg DAILY SC 08/05/24 10:00 Nitroglycerin 0.4 mg Q5MINP PRN SL 08/05/24 09:15 Morphine Sulfate 2 mg Q30M PRN IV 08/05/24 09:15 Cefepime HCl 50 ml @ 12.5 mls/hr DAILY IV 08/05/24 10:00 Exam Vital Signs Vital Signs Date Time Temp Pulse Resp B/P (MAP) Pulse Ox O2 Delivery O2 Flow Rate FiO2 08/05/24 12:35 97 13 107/69 (82) 100 08/05/24 10:42 97.2 97.2 08/05/24 10:42 Mask 7.0 100 Assessment/Plan Assessment/Plan see dictated note Plan discussed with: Patient My Orders Orders - MADELIN MINOR MD Procedure Category Date Status Time 2 Gm Sodium Diet DIET 08/05/24 Transmitted Dinner Hydromorphone PHA 08/05/24 Transmitted Injection (Dilaudid 14:45 * Cardiology Consult CONS 08/05/24 Transmitted 14:39 Complete Blood Count LAB 08/06/24 Verified 06:00 Comprehensive LAB 08/06/24 Verified Metabolic Panel 06:00 Thyroid Stimulating LAB 08/06/24 Verified Hormone 05:00 Date of Service: Aug 05, 2024 Billing Provider: MADELIN MINOR MD Common Visit Codes: [id number] INP/OBS CARE (HIGH) MADELIN MINOR MD Aug 05, 2024 14:42
--- NOTE | 2024-08-05 16:19 | DVHHP ---
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 The patient at this time denies any significant pain. No chest pain or shortness of breath. No nausea or vomiting. REVIEW OF SYSTEMS: Review of rest of systems are otherwise currently negative. PAST MEDICAL HISTORY: Significant for atrial fibrillation, hypertension, hypothyroidism. MEDICATIONS: Include levothyroxine, lisinopril, sotalol. ALLERGIES: LASIX, HEPARIN, ASPIRIN. SOCIAL HISTORY: Lives at home with his sister. Denies smoking or alcohol. FAMILY HISTORY: Negative. PHYSICAL EXAMINATION: GENERAL: The patient is awake, alert. VITAL SIGNS: Temperature of 97.2, pulse 97 per minute, blood pressure 107/69. SHEENT: Unremarkable. NECK: There is no JVD, no pedal edema. LUNGS: Equal bilaterally. No added sounds. CARDIOVASCULAR: S1, S2 is regular. ABDOMEN: Soft. There is no organomegaly. NEUROLOGIC: Nonfocal. MUSCULOSKELETAL: The right knee is currently in a dressing. ASSESSMENT AND PLAN: * Hypertension for which the patient's lisinopril will be held and blood pressure be monitored. * Atrial fibrillation for which she will be placed on sotalol. * Hypothyroidism. A TSH will be checked. * Obesity. * Status post surgery on the right knee for DJD of the knee for which she will receive pain medication and physical therapy. MD SNEHA Trejo/GAMALIEL TID: [id number] RECEIPT: [id number]
[2024-08-05 16:30] VITALS: BP 131/74; PULSE 104; RESP 16; TEMP 97.3; O2SAT 96
[2024-08-05 17:00] VITALS: BP 131/74; PULSE 104; RESP 17; TEMP 97.3; O2SAT 96
[2024-08-05 20:00] VITALS: PULSE 105; PULSE 18; RESP 18; O2SAT 92
[2024-08-05 21:00] VITALS: BP 101/64; PULSE 81; RESP 17; O2SAT 92
[2024-08-06] VITALS (9 sets, daily range): BP systolic 76–107; BP diastolic 42–67; PULSE 18–115; RESP 12–18; TEMP 97–98.3; O2SAT 91–95
[2024-08-06] MEDS: LEVOTHYROXINE SODIUM 112 MCG TAB PO SCH (05:58)
--- NOTE | 2024-08-06 08:08 | DVHPN2 ---
Progress Note Date Seen: Aug 06, 2024 Medical Necessity Reason Pt with a Central, PICC or Fol: No Subjective Patient reports: No new complaints Objective vital signs Vital Sign Date Time Temp Pulse Resp B/P (MAP) Pulse Ox O2 Delivery O2 Flow Rate FiO2 08/06/24 05:00 97.0 72 17 93/42 (59) 95 97.0 08/05/24 20:00 Room Air* 0 21 Total Intake and Output 08/05/24 08/05/24 08/06/24 14:59 22:59 06:59 Intake Total 200 ml 0 ml 150 ml Output Total 0 ml Balance 200 ml 0 ml 150 ml medications Current Medications Medications Dose Ordered Sig/María Route Start Time Stop Time Status Last Admin Dose Admin Levothyroxine Sodium 112 mcg QAM PO 08/06/24 07:00 08/06/24 05:58 112 MCG Sotalol HCl 40 mg BID PO 08/05/24 10:00 08/05/24 22:36 40 MG Patient Own Medication 99 mg DAILY PO 08/06/24 10:00 Lactated Ringer's 1,000 ml @ 100 mls/hr Q10H IV 08/05/24 09:15 08/05/24 22:26 100 MLS/HR Sodium Chloride 10 ml Q8HR IV 08/05/24 14:00 08/06/24 05:19 10 ML Oxycodone/ Acetaminophen 1 tab Q4HP PRN PO 08/05/24 09:15 Ondansetron HCl 4 mg Q6HP PRN IV 08/05/24 09:15 Docusate Sodium 100 mg Q12HR PO 08/05/24 10:00 08/05/24 22:32 100 MG Enoxaparin Sodium 40 mg DAILY SC 08/05/24 10:00 Nitroglycerin 0.4 mg Q5MINP PRN SL 08/05/24 09:15 Morphine Sulfate 2 mg Q30M PRN IV 08/05/24 09:15 Cefepime HCl 50 ml @ 12.5 mls/hr DAILY IV 08/05/24 10:00 Hydromorphone HCl 1 mg Q4HP PRN IV 08/05/24 14:45 Examination: GENERAL:Normal, MSK:Abnormal Problem List/Assessment/Plan Problem List/Assessment/Plan 78 year old female who is s/p Right TKA POD 1 1. Pain control 2. WBAT RLE 3. physical therapy 4. CPM as ordered 5. d/c planning for home tomorrow with home health with in home physical therapy 6. Patient has post-op prescriptions for percocet, colace and eliquis sent on 08/01/2024 at [facility] on [address] in [place] 7. follow up on 08/21/2024 at 9:30 Plan discussed with: Patient Date of Service: Aug 06, 2024 Billing Provider: ROBERTO KAMARA MD Common Visit Codes: NOT BILLABLE JEMIMA CASANOVA NP Aug 06, 2024 08:08
[2024-08-06] MEDS: POTASSIUM 99 MG PO SCH (09:34)
[2024-08-06] MEDS ORDERED: LISINOPRIL 20 MG TAB PO SCH (10:00)
[2024-08-06 10:04] LABS: Basophils # (auto) 0.1 10 ^3/uL (0-0.2); Eosinophils # (auto) 0.2 10 ^3/uL (0-0.8); Eosinophils % (auto) 1.9 % (0.0-7.0); Hematocrit 38.9 % (36.0-46.0); Hemoglobin 13.2 g/dL (12.2-16.2); Lymphocytes # (auto) 1.4 10 ^3/uL (0.4-5.4); Lymphocytes % (auto) 12.4 % (10.0-50.0); Mean Corpuscular Hgb Conc. 33.9 g/dL (32.0-36.0); Mean Corpuscular Volume 97.1 fL (80.0-100.0); Monocytes # (auto) 1.2 10 ^3/uL (0-1.3); Monocytes % (auto) 10.1 % (0.0-12.0); Neutrophils # (auto) 8.7 10 ^3/uL (1.6-8.6); Neutrophils % (auto) 74.6 % (37.0-80.0); Nucleated Red Blood Cells % 0.1 %; Platelet Count (auto) 171 10^3/uL (140-450); Red Cell Distribution Width 14.1 % (11.8-14.3); White Blood Cell 11.6 10^3/uL (4.4-10.8)
[2024-08-06 10:25] LABS: Albumin 3.6 g/dL (3.2-4.8); Alkaline Phosphatase 77 U/L (46-116); Anion Gap 9 (5-15); Bilirubin, Total 0.7 mg/dL (0.2-1.0); Calcium 9.7 mg/dL (8.7-10.4); Carbon Dioxide 22 mmol/L (20-31); Sodium 138 mmol/L (136-145); Total Protein 6.2 g/dL (5.7-8.2)
[2024-08-06 10:45] LABS: Aspartate Aminotransferase 50 U/L (13-40); Chloride 107 mmol/L (98-107); Glucose 119 mg/dL (74-106)
[2024-08-06 12:20] LABS: Alanine Aminotransferase 11 U/L (7-40); BUN/Creatinine Ratio 21.7 (10.0-20.0); Blood Urea Nitrogen 23 mg/dL (9-23); Potassium 4.7 mmol/L (3.5-5.1)
--- NOTE | 2024-08-06 14:35 | DVHPN2 ---
Progress Note - Dictate Date Seen: Aug 06, 2024 Medical Necessity Reason Pt with a Central, PICC or Fol: No Subjective PT WELL KNOWN TO ME S/P TOTAL RIGHT KNEE ARTHROPLASTY POD 0 ON 08/05/24 The patient who is a 77-year-old with history of hypertension, hypothyroidism. Now with sick sinus syndrome, underlying rhythm is paroxysmal atrial fibrillation, atrial flutter with variable rate and with beta blockade she becomes bradycardic with pauses greater than 2.4 seconds. The patient is now to undergo dual chamber permanent pacemaker implantation. The patient aware of the risks and benefits. She understands and agrees. PERTINENT MEDICAL HISTORY: Significant for obesity. REVIEW OF SYSTEMS: Denies any melena, hematochezia, no bleeding diathesis. No hematemesis, hemoptysis. No history of hematuria. No renal disease. At this time, denies any lung disease. Denies any CVAs, thromboembolic event. Denies any seizure disorder, movement disorder. No neurological disorders. Denies any GI symptoms. No liver disease. No renal dysfunction. No history of IBS. No history of IBD. No history of any bleeding at this time. No pancreatic issues as well. No neurological issues as stated above. She has sick sinus syndrome with shortness of breath, lethargy and fatigue. Denies any fever or chills. She is COVID negative. Denies any recent infectious etiology. No UTI demonstrated. No bladder issues as well. vital signs Vital Sign Date Time Temp Pulse Resp B/P (MAP) Pulse Ox O2 Delivery O2 Flow Rate FiO2 08/06/24 12:46 98.3 96 16 100/54 (69) 91 98.3 08/05/24 20:00 Room Air* 0 21 Total Intake and Output 08/05/24 08/05/24 08/06/24 15:00 23:00 07:00 Intake Total 200 ml 0 ml 150 ml Output Total 0 ml Balance 200 ml 0 ml 150 ml medications Current Medications Medications Dose Ordered Sig/María Route Start Time Stop Time Status Last Admin Dose Admin Levothyroxine Sodium 112 mcg QAM PO 08/06/24 07:00 08/06/24 05:58 112 MCG Sotalol HCl 40 mg BID PO 08/05/24 10:00 08/06/24 09:24 40 MG Patient Own Medication 99 mg DAILY PO 08/06/24 10:00 Lactated Ringer's 1,000 ml @ 100 mls/hr Q10H IV 08/05/24 09:15 08/05/24 22:26 100 MLS/HR Sodium Chloride 10 ml Q8HR IV 08/05/24 14:00 08/06/24 05:19 10 ML Oxycodone/ Acetaminophen 1 tab Q4HP PRN PO 08/05/24 09:15 Ondansetron HCl 4 mg Q6HP PRN IV 08/05/24 09:15 Docusate Sodium 100 mg Q12HR PO 08/05/24 10:00 08/06/24 09:25 100 MG Enoxaparin Sodium 40 mg DAILY SC 08/05/24 10:00 08/06/24 09:20 40 MG Nitroglycerin 0.4 mg Q5MINP PRN SL 08/05/24 09:15 Morphine Sulfate 2 mg Q30M PRN IV 08/05/24 09:15 Cefepime HCl 50 ml @ 12.5 mls/hr DAILY IV 08/05/24 10:00 08/06/24 09:25 12.5 MLS/HR Hydromorphone HCl 1 mg Q4HP PRN IV 08/05/24 14:45 objective VITAL SIGNS: Blood pressure is 88/70, pulse of 70, O2 saturation 95% on room air. HEENT: Pupils are reactive. Funduscopic exam is benign. No papilledema, no AV nicking, no exudates. Sclerae are anicteric. Conjunctivae are within normal limits. Extraocular muscles are intact. Tympanic membranes are negative. No sinus tenderness. Oral mucosa moist. Posterior pharynx without any exudate. NECK: No JVD appreciated. Carotid pulses are 2+ symmetrical. No cervical adenopathy, no supraclavicular adenopathy. PULMONARY: Clear to auscultation. CARDIOVASCULAR: Irregularly irregular at this time. PMI is not displaced. There are no murmurs or gallops appreciated. ABDOMEN: Soft, nontender, normal bowel sounds. Liver approximately 5 cm. Spleen tip nonpalpable. No epigastric tenderness. No CVA tenderness. No suprapubic tenderness. Stool guaiac is negative. NEUROLOGIC: The patient is intact. EXTREMITIES: 1+ pulses, 1+ edema. EXT: S/P Rt knee total arthroplasty laboratory and microbiology Laboratory Tests 08/06/24 09:48 Test 08/06/24 09:48 Range/Units Serum Glucose 119 H 74-106 mg/dL Problem List S/P RIGHT TOTAL KNEE ARTHROPLASTY HTN SSS S/P PPI AFIB HYPERCOAGULABLE STATE Assessment/Plan PT MONITOR H/H DVT PROPHYLAXIS Plan discussed with: Patient SHILPA LO MD Aug 06, 2024 14:35
--- NOTE | 2024-08-06 14:43 | DVHPN2 ---
Progress Note Date Seen: Aug 06, 2024 Medical Necessity Reason Pt with a Central, PICC or Fol: No Subjective Patient reports: No new complaints Review of Systems: HEENT:Normal, CVS:Normal, RESPIRATORY:Normal, GI:Normal, :Normal, MSK:Normal, NEURO:Normal Objective vital signs Vital Sign Date Time Temp Pulse Resp B/P (MAP) Pulse Ox O2 Delivery O2 Flow Rate FiO2 08/06/24 12:46 98.3 96 16 100/54 (69) 91 98.3 08/05/24 20:00 Room Air* 0 21 Total Intake and Output 08/05/24 08/05/24 08/06/24 15:00 23:00 07:00 Intake Total 200 ml 0 ml 150 ml Output Total 0 ml Balance 200 ml 0 ml 150 ml medications Current Medications Medications Dose Ordered Sig/María Route Start Time Stop Time Status Last Admin Dose Admin Levothyroxine Sodium 112 mcg QAM PO 08/06/24 07:00 08/06/24 05:58 112 MCG Sotalol HCl 40 mg BID PO 08/05/24 10:00 08/06/24 09:24 40 MG Patient Own Medication 99 mg DAILY PO 08/06/24 10:00 Lactated Ringer's 1,000 ml @ 100 mls/hr Q10H IV 08/05/24 09:15 08/05/24 22:26 100 MLS/HR Sodium Chloride 10 ml Q8HR IV 08/05/24 14:00 08/06/24 05:19 10 ML Oxycodone/ Acetaminophen 1 tab Q4HP PRN PO 08/05/24 09:15 Ondansetron HCl 4 mg Q6HP PRN IV 08/05/24 09:15 Docusate Sodium 100 mg Q12HR PO 08/05/24 10:00 08/06/24 09:25 100 MG Enoxaparin Sodium 40 mg DAILY SC 08/05/24 10:00 08/06/24 09:20 40 MG Nitroglycerin 0.4 mg Q5MINP PRN SL 08/05/24 09:15 Morphine Sulfate 2 mg Q30M PRN IV 08/05/24 09:15 Cefepime HCl 50 ml @ 12.5 mls/hr DAILY IV 08/05/24 10:00 08/06/24 09:25 12.5 MLS/HR Hydromorphone HCl 1 mg Q4HP PRN IV 08/05/24 14:45 Examination: GENERAL:Normal, HEENT:Normal, NECK:Normal, LUNGS:Normal, CVS:Normal, ABDOMEN:Normal, MSK:Normal, MSK:Abnormal (right knee dressing), SKIN:Normal, NEURO:Normal, :Normal laboratory and microbiology Laboratory Tests 08/06/24 09:48 Test 08/06/24 09:48 Range/Units Serum Glucose 119 H 74-106 mg/dL Problem List/Assessment/Plan Problem List/Assessment/Plan * Hypertension for which the patient's lisinopril will be held and blood pressure be monitored. * Atrial fibrillation for which she will be placed on sotalol. * Hypothyroidism. A TSH will be checked. * Obesity. * Status post surgery on the right knee for DJD of the knee for which she will receive pain medication and physical therapy. advance care planning- full code- time spent 19 mins Plan discussed with: Patient My Orders My Orders Orders - MADELIN MINOR MD Procedure Category Date Status Time Acetaminophen Tablet PHA 08/06/24 Verified (Tylenol Tablet) 14:45 Date of Service: Aug 06, 2024 Billing Provider: MADELIN MINOR MD Common Visit Codes: [id number] INP/OBS CARE(HIGH) Secondary Visit Codes: [id number] CARE PLAN 30 MINUTES MADELIN MINOR MD Aug 06, 2024 14:43
[2024-08-06] MEDS: ACETAMINOPHEN 325 MG TAB PO PRN (16:34)
[2024-08-07 01:00] VITALS: BP 88/50; PULSE 90; RESP 13; TEMP 98; O2SAT 96
[2024-08-07 04:42] VITALS: BP 102/65; PULSE 111; RESP 12; TEMP 97.9; O2SAT 97
[2024-08-07 06:37] LABS: Hematocrit 32.9 % (36.0-46.0)
[2024-08-07 08:00] VITALS: PULSE 110; RESP 18
[2024-08-07 08:39] VITALS: BP 111/60; PULSE 112; RESP 20; TEMP 98.4; O2SAT 95
[2024-08-07 12:00] VITALS: BP 93/47; PULSE 110; RESP 20; TEMP 98.1; O2SAT 94
--- NOTE | 2024-08-07 13:20 | DVHPN2 ---
Progress Note - Dictate Date Seen: Aug 07, 2024 Medical Necessity Reason Pt with a Central, PICC or Fol: No Subjective PT WELL KNOWN TO ME S/P TOTAL RIGHT KNEE ARTHROPLASTY POD 0 ON 08/05/24 The patient who is a 77-year-old with history of hypertension, hypothyroidism. Now with sick sinus syndrome, underlying rhythm is paroxysmal atrial fibrillation, atrial flutter with variable rate and with beta blockade she becomes bradycardic with pauses greater than 2.4 seconds. The patient is now to undergo dual chamber permanent pacemaker implantation. The patient aware of the risks and benefits. She understands and agrees. PERTINENT MEDICAL HISTORY: Significant for obesity. REVIEW OF SYSTEMS: Denies any melena, hematochezia, no bleeding diathesis. No hematemesis, hemoptysis. No history of hematuria. No renal disease. At this time, denies any lung disease. Denies any CVAs, thromboembolic event. Denies any seizure disorder, movement disorder. No neurological disorders. Denies any GI symptoms. No liver disease. No renal dysfunction. No history of IBS. No history of IBD. No history of any bleeding at this time. No pancreatic issues as well. No neurological issues as stated above. She has sick sinus syndrome with shortness of breath, lethargy and fatigue. Denies any fever or chills. She is COVID negative. Denies any recent infectious etiology. No UTI demonstrated. No bladder issues as well. vital signs Vital Sign Date Time Temp Pulse Resp B/P (MAP) Pulse Ox O2 Delivery O2 Flow Rate FiO2 08/07/24 12:00 98.1 110 20 93/47 (62) 94 98.1 08/07/24 08:00 Room Air* 0 21 Total Intake and Output 08/06/24 08/06/24 08/07/24 15:00 23:00 07:00 Intake Total 1280 ml 1560 ml 300 ml Output Total 0 ml Balance 1280 ml 1560 ml 300 ml medications Current Medications Medications Dose Ordered Sig/María Route Start Time Stop Time Status Last Admin Dose Admin Levothyroxine Sodium 112 mcg QAM PO 08/06/24 07:00 08/07/24 05:59 112 MCG Sotalol HCl 40 mg BID PO 08/05/24 10:00 08/07/24 09:42 40 MG Patient Own Medication 99 mg DAILY PO 08/06/24 10:00 Sodium Chloride 10 ml Q8HR IV 08/05/24 14:00 08/07/24 05:58 10 ML Oxycodone/ Acetaminophen 1 tab Q4HP PRN PO 08/05/24 09:15 Ondansetron HCl 4 mg Q6HP PRN IV 08/05/24 09:15 Docusate Sodium 100 mg Q12HR PO 08/05/24 10:00 08/07/24 09:41 100 MG Enoxaparin Sodium 40 mg DAILY SC 08/05/24 10:00 08/07/24 09:43 40 MG Nitroglycerin 0.4 mg Q5MINP PRN SL 08/05/24 09:15 Morphine Sulfate 2 mg Q30M PRN IV 08/05/24 09:15 Cefepime HCl 50 ml @ 12.5 mls/hr DAILY IV 08/05/24 10:00 08/06/24 09:25 12.5 MLS/HR Hydromorphone HCl 1 mg Q4HP PRN IV 08/05/24 14:45 Acetaminophen 650 mg Q6HP PRN PO 08/06/24 14:45 08/06/24 16:34 650 MG objective VITAL SIGNS: Blood pressure is 88/70, pulse of 70, O2 saturation 95% on room air. HEENT: Pupils are reactive. Funduscopic exam is benign. No papilledema, no AV nicking, no exudates. Sclerae are anicteric. Conjunctivae are within normal limits. Extraocular muscles are intact. Tympanic membranes are negative. No sinus tenderness. Oral mucosa moist. Posterior pharynx without any exudate. NECK: No JVD appreciated. Carotid pulses are 2+ symmetrical. No cervical adenopathy, no supraclavicular adenopathy. PULMONARY: Clear to auscultation. CARDIOVASCULAR: Irregularly irregular at this time. PMI is not displaced. There are no murmurs or gallops appreciated. ABDOMEN: Soft, nontender, normal bowel sounds. Liver approximately 5 cm. Spleen tip nonpalpable. No epigastric tenderness. No CVA tenderness. No suprapubic tenderness. Stool guaiac is negative. NEUROLOGIC: The patient is intact. EXTREMITIES: 1+ pulses, 1+ edema. EXT: S/P Rt knee total arthroplasty laboratory and microbiology Laboratory Tests 08/07/24 04:53 08/06/24 09:48 Test 08/06/24 09:48 Range/Units Serum Glucose 119 H 74-106 mg/dL Problem List S/P RIGHT TOTAL KNEE ARTHROPLASTY HTN SSS S/P PPI AFIB HYPERCOAGULABLE STATE Assessment/Plan PT MONITOR H/H DVT PROPHYLAXIS HCT STABLE CHECK WBC Plan discussed with: Patient SHILPA LO MD Aug 07, 2024 13:20
--- NOTE | 2024-08-07 13:38 | DVHDS2 ---
Discharge Summary Date of Admission Aug 05, 2024 at 09:13 Date of Discharge: Aug 07, 2024 Labs/Diagnostic Data: Laboratory Results Test 08/07/24 04:53 08/06/24 09:48 Hemoglobin 11.0 g/dL (12.2-16.2) Hematocrit 32.9 % (36.0-46.0) White Blood Count 11.6 10^3/uL (4.4-10.8) Red Blood Count 4.00 10^6/uL (4.0-5.20) Mean Corpuscular Volume 97.1 fL (80.0-100.0) Mean Corpuscular Hemoglobin 33.0 pg (28.0-32.0) Mean Corpuscular Hemoglobin Concent 33.9 g/dL (32.0-36.0) Red Cell Distribution Width 14.1 % (11.8-14.3) Platelet Count 171 10^3/uL (140-450) Mean Platelet Volume 9.2 fL (6.9-10.8) Neutrophils (%) (Auto) 74.6 % (37.0-80.0) Lymphocytes (%) (Auto) 12.4 % (10.0-50.0) Monocytes (%) (Auto) 10.1 % (0.0-12.0) Eosinophils (%) (Auto) 1.9 % (0.0-7.0) Basophils (%) (Auto) 1.0 % (0.0-2.0) Neutrophils # (Auto) 8.7 10 ^3/uL (1.6-8.6) Lymphocytes # (Auto) 1.4 10 ^3/uL (0.4-5.4) Monocytes # (Auto) 1.2 10 ^3/uL (0-1.3) Eosinophils # (Auto) 0.2 10 ^3/uL (0-0.8) Basophils # (Auto) 0.1 10 ^3/uL (0-0.2) Nucleated Red Blood Cells 0.1 % Sodium Level 138 mmol/L (136-145) Potassium Level 4.7 mmol/L (3.5-5.1) Chloride Level 107 mmol/L (98-107) Carbon Dioxide Level 22 mmol/L (20-31) Anion Gap 9 (5-15) Blood Urea Nitrogen 23 mg/dL (9-23) Creatinine 1.06 mg/dL (0.550-1.02) Glomerular Filtration Rate Calc 53 mL/min (>90) BUN/Creatinine Ratio 21.7 (10.0-20.0) Serum Glucose 119 mg/dL (74-106) Calcium Level 9.7 mg/dL (8.7-10.4) Total Bilirubin 0.7 mg/dL (0.2-1.0) Aspartate Amino Transferase (AST) 50 U/L (13-40) Alanine Aminotransferase (ALT) 11 U/L (7-40) Alkaline Phosphatase 77 U/L (46-116) Total Protein 6.2 g/dL (5.7-8.2) Albumin 3.6 g/dL (3.2-4.8) Thyroid Stimulating Hormone (TSH) 0.13 uIU/mL (0.55-4.78) Other Laboratory Tests 08/07/24 04:53 08/06/24 09:48 Brief Hx & Hospital Course: SEE DICTATED NOTE Condition at Discharge: Fair Final Diagnosis/Problems List RIGHT KNEE SURGERY Discharge Disposition: Home with Health Services Discharge Instruct/Medications Diet: Cardiac 2g Na,low cholest Activity: No Restrictions, As Tolerated Follow Up/Referral: FU WITH PCP /ORTHO Medications: RESUME HOME MEDS REST MEDS PER ORTHO Discharge Statement: "Patient was advised to return to the ER or call 911 if any headaches, dizziness, shortness of breath, chest pain, abdominal pain, bleeding, fevers, or worsening of medical condition. Patient was counseled about treatment plan, medications, possible side effects, patientverbalized understanding. All questions were answered to the best of my ability. This discharge took greater then 30 minutes in planning, reviewing documentation, counseling the patient, and discussing with other team members." ASSESSMENT ASSESSMENT Assessment RIGHT KNEE SURGERY Date of Service: Aug 07, 2024 Billing Provider: MADELIN MINOR MD Common Visit Codes: 94684-CZN/OBS DISCH DAY >30min MADELIN MINOR MD Aug 07, 2024 13:38
--- NOTE | 2024-08-07 13:51 | DVHDS ---
DATE OF DISCHARGE: 08/07/2024 HISTORY OF PRESENT ILLNESS: The patient is a 78-year-old lady who was admitted after she underwent surgery on the right knee for DJD of the knee. The patient has a history of hypertension, atrial fibrillation, and hypothyroidism. HOSPITAL COURSE: The patient did well postoperatively. Hemoglobin at the time of discharge was 11. TSH was 0.13. The patient currently has been cleared for discharge by Orthopedics and will be discharged home to resume home medications as well as home physical therapy. I have asked the patient and sister at the bedside to monitor her blood pressure. She will follow up with Dr. Mtz in the orthopedic clinic in the next 1-2 weeks. FINAL DIAGNOSES: Therefore, * Hypertension. * Atrial fibrillation. * Hypothyroidism. * Obesity. * Status post surgery on the right knee for degenerative joint disease of the knee. Time spent in discharge planning and review of plan with the patient's family and sap business intelligence consultant was 37 minutes. MD SNEHA Trejo/SHANNAN TID: [id number] RECEIPT: [id number]
[2024-08-07 14:23] VITALS: BP 111/60; PULSE 112; TEMP 36.7
--- NOTE | 2024-08-07 16:15 | DVHOP2 ---
Operative Report - 2 Report Details Date: 08/05/24 Preop Diagnosis: Right knee osteoarthritis Postop Diagnosis: As above Surgeon: Casimiro Kamara MD Voice Over Announcer: Jc SUAREZ Anesthesiologist: Dee ROBLES Anesthesia: Regional Implant: [employer] cemented PS Consent: The patient was informed of the risks and benefits of the procedure. These include but are not limited to complications of anesthesia, postoperative infection, incomplete relief of symptoms, recurrence of symptoms, damage to blood vessels, nerves and tendons, deep venous thrombosis, pulmonary embolism and possible need for repeat surgery in the future. Estimated Blood Loss: 50 cc Name of Procedure Performed Right total knee arthroplasty using computer navigation Procedure Details Procedure Details: FINDINGS: degenerative disease with grade IV changes with valugus deformity INDICATION: This patient has failed non-operative treatments for knee arthritis and is now indicated for a total knee replacement. Preoperatively in the waiting area as well as in the office, I had a long discussion with the patient regarding the plan, the expected outcome, the risks, benefits, and alternatives of surgery. The risks include, but are not limited to, infection (which may require future surgery and removal of implants) , bleeding (which may require a transfusion), damage to nerves, arteries, veins, tendons, muscles and other adjacent structures. Also discussed the possibilities of intraoperative fractures, implant loosening, heterotopic bone formation, and revision for variety of reasons, and medical complications etc. This was discussed at length and consent has been obtained. DESCRIPTION OF PROCEDURE: In the preoperative holding area, the consent was reviewed and the appropriate extremity was verified by the patient and marked with my initials. The patient was then transferred to the operating theatre. Appropriate anesthesia was induced. All bony prominences were well padded. A time out was performed verifying the side and site of surgery according to standard protocol. Preoperative antibiotics were given 10 minutes prior to tourniquet inflation. Tranexamic was given. A well padded thigh tourniquet was applied. The extremity was then prepped and draped in the usual sterile fashion. The extremity was exsanguinated and the tourniquet was inflated. We then made a mid-line incision, which we continued to the underlying capsular tissue. We performed a medial parapatellar arthrotomy. We periosteally exposed the proximal tibia, excised the anterior fat pad and synovium from the distal aspect of the femur. We then subluxed the patella and brought the knee up into flexion. The lateral meniscus, ACL were released. We used the appropriate guide with attached computer navigation to secure the distal femoral cutting block to the femur with pins and completed the distal femoral cut in 0 degrees to the mechanical axis with an oscillating saw. We removed the distal femoral cutting block and turned our attention to the tibia. We used the extramedullary tibial alignment guide with computer navigation to secure the proximal tibial cutting block to the tibia with pins, setting it for a 1mm cut from the more involved side, medially and completed the proximal tibial cut. We then used the spacer block and alignment farrukh to check the varus- valgus angle of our cuts and the extension gap. Patient noted to be tight medially that was tight so medial release done. The knee was then balanced in extension to varus/valgus stress. We marked our femoral anatomy, including Dane's line and the epicondylar axis. Using that as a rotational guide, we used the sizing guide to size our femur properly, using a stylus to ensure there would be no notching. We then used the AP cutting guide to make our anterior and posterior cuts and chamfer cuts with an oscillating saw. We again checked the flexion and extension gaps and coronal balancing. Next, we sized our tibia and secured a baseplate with appropriate rotation with pins. We placed a trial femur in position and completed preparation of the notch with reamers and box osteotome and placed a trial notch in position. We used trials to choose our liner size and then placed the liner in place and reduced the knee. We used an oscillating saw to resurface the patella, and used a guide to choose the button size and completed patella preparation with the drill. We then placed a trial button in place. At this point, we checked our seven parameters: 1) Limb alignment 2) Extension 3) Flexion against gravity 4) Flexion stability 5) Varus-valgus balancing 6) Component rotation 7) Patella tracking We were satisfied with these and removed all trials with the exception of the baseplate. We completed preparation of the tibia with the appropriate reamer and keel impactor and then removed the baseplate. We placed a bone plug in the distal femur and then irrigated and dried all bony surfaces and injected our pain cocktail. We impacted our tibial, femoral and patellar components into position. Excess cement was removed with curettes. We impacted our liner and reduced the knee and held it with axial loading until all cement hardened. We did a luis-articular cocktail block. We released the tourniquet and achieved hemostasis where necessary. A dilute betadine solution (17.5mL in 500mL saline) was used to wash the joint and left to sit for 3 minutes. This was then irrigated out with copious amounts of pulse lavage. We sprinkled 1g vancomycin powder below the fascia and 1g above the fascia. We copiously irrigated the knee. We re-checked our seven parameters. We closed our capsular incision with a PDS style suture. We irrigated further. We closed the subcutaneous tissue with Vicryl suture and re-approximated the skin with Deshler. We verified all lower extremity compartments were soft and compressible and that we had intact distal pulses. We wrapped the extremity in sterile Webril and edis bandage. The patient was transferred to the recovery room in stable condition. Condition Good Disposition Still a Patient CASIMIRO KAMARA MD Aug 07, 2024 16:15
[2024-08-07] MEDS ORDERED: PROPOFOL 10 MG/ML 20 ML IV ONE (16:20)
== END 2024-08-07 16:21 | disposition home health service (06) | DRG 470 ==
LOC: SUR 07:01 → OVERFLOW 09:13 → TELE 15:17 → TELE-WESTW 16:09
PROVIDERS: ADMIT Internal Medicine; ATTEND Internal Medicine
PROC: 8E0YXBZ Computer Assisted Procedure of Lower Extremity (ICD-10-PCS; 2024-08-05)
PROC: 0SRC0J9 Replacement of Right Knee Joint with Synthetic Substitute, Cemented, Open Approach (ICD-10-PCS; principal; 2024-08-05 09:05)
DX: M17.11 Unilateral primary osteoarthritis, right knee (principal); I48.92 Unspecified atrial flutter; I48.0 Paroxysmal atrial fibrillation; E03.9 Hypothyroidism, unspecified; E66.9 Obesity, unspecified; I10 Essential (primary) hypertension; Z68.37 Body mass index [BMI] 37.0-37.9, adult; Z88.1 Allergy status to other antibiotic agents; Z88.6 Allergy status to analgesic agent
CPT/HCPCS: 36415; 73562; 80053; 84443; 85014; 85018; 85025; 86850; 86900; 86901; 97110; 97116; 97163; 97530; C1713; G0378; J0131; J1885; J2250; J2405; J2704; J3490

== ENCOUNTER 2024-08-12 15:23 | Inpatient (IN) | payer MEDICARE, OTHER ==
[~2024-08-12] VITALS: Ht 160 cm; Wt 104.5 kg
--- NOTE | 2024-08-12 15:41 | ECG ---
[facility] Test Date: 2024-08-12 Test Time: 15:31:38 Pat Name: LYNNETTE MAIN Department: ER Room: Gender: F Job Honer: JESSICA : 1945 Requested By: LINDA YANG Order Number: [id number] Reading MD: Measurements Intervals Gray Rate: 70 P: 40 AK: 187 QRS: -37 QRSD: 98 T: 239 QT: 440 QTc: 475 Interpretive Statements Sinus rhythm Left axis deviation Abnormal T, probable ischemia, widespread Please click the below link to view image of tracing.
[2024-08-12] MEDS: MORPHINE SULFATE 4 MG/ML SYR/VIAL IV ONE (19:45)
[2024-08-12] MEDS: ONDANSETRON HCL 4 MG/2 ML VIAL IV ONE (19:45)
[2024-08-12 20:29] LABS: Basophils # (auto) 0.2 10 ^3/uL (0-0.2); Basophils % (auto) 2.7 % (0.0-2.0); Eosinophils # (auto) 0.2 10 ^3/uL (0-0.8); Eosinophils % (auto) 2.4 % (0.0-7.0); Hematocrit 39.5 % (36.0-46.0); Hemoglobin 12.8 g/dL (12.2-16.2); Lymphocytes # (auto) 1.7 10 ^3/uL (0.4-5.4); Lymphocytes % (auto) 22.3 % (10.0-50.0); Mean Corpuscular Hemoglobin 32.5 pg (28.0-32.0); Mean Corpuscular Hgb Conc. 32.4 g/dL (32.0-36.0); Mean Corpuscular Volume 100.5 fL (80.0-100.0); Monocytes # (auto) 1.2 10 ^3/uL (0-1.3); Monocytes % (auto) 15.2 % (0.0-12.0); Neutrophils # (auto) 4.5 10 ^3/uL (1.6-8.6); Neutrophils % (auto) 57.4 % (37.0-80.0); Nucleated Red Blood Cells % 0.1 %; Platelet Count (auto) 236 10^3/uL (140-450); Red Blood Cells 3.93 10^6/uL (4.0-5.20); White Blood Cell 7.8 10^3/uL (4.4-10.8)
[2024-08-12 21:17] LABS: Potassium 4.8 mmol/L (3.5-5.1); Sodium 139 mmol/L (136-145)
[2024-08-12 21:18] LABS: Anion Gap 8 (5-15); Carbon Dioxide 24 mmol/L (20-31)
[2024-08-12 21:19] LABS: Calcium 10.2 mg/dL (8.7-10.4)
[2024-08-12 21:21] LABS: INR 1.03 (0.9-1.15); Partial Thromboplastin Time 26.8 SEC (24.5-34.5); Prothrombin Time 10.9 sec (9.3-11.8)
[2024-08-12 21:23] LABS: BUN/Creatinine Ratio 19.1 (10.0-20.0); Blood Urea Nitrogen 21 mg/dL (9-23); Glucose 97 mg/dL (74-106)
[2024-08-12 21:28] LABS: Chloride 107 mmol/L (98-107)
--- NOTE | 2024-08-12 21:47 | DVH ---
Right lower extremity venous duplex Clinical History: rle pain swelling Comparison: None Technique: Duplex Doppler evaluation of the deep venous system of the right lower extremity from the common femo ral vein to the popliteal vein including color Doppler and spectral/pulsed waveform analysis was perf ormed. Findings: The common femoral vein demonstrates appropriate compressibility and waveform variability. There is compressibility/patency of the great saphenous vein at the proximal thigh. The femoral vein demonstrates appropriate compressibility and waveform variability. The deep femoral vein demonstrates appropriate compressibility and waveform variability. The popliteal vein demonstrates appropriate compressibility and waveform variability. There is normal compressibility at the tibioperoneal trunk. Impression: 1. No right femoropopliteal venous thrombosis.
[2024-08-12 21:50] VITALS: PULSE 75; RESP 9; O2SAT 98
--- NOTE | 2024-08-12 22:02 | ED.PDOC ---
Musculoskeletal HPI Comments 78-year-old female brought in by EMS from home after being referred by home health care provider for evaluation of worsening right lower extremity swelling. Patient underwent right total knee replacement about a week ago. She does note some increased pain and swelling, however denies any fever, chest pain, shortness a breath or discoloration other than bruising. Pt states she has not had any recent fall or injury. Pt otherwise has noted stable vitals in the ED. Pt denies any other symptoms at this time. Chief Complaint: Extremity Swelling Time Seen by MD: 15:30 Reviewed Notes: [employer] Chief Notes Allergies: Coded Allergies: Furosemide (Verified Allergy, Intermediate, 11/14/22) itching/hives Aspirin (Verified Allergy, Unknown, 11/14/22) Ciprofloxacin (Verified Allergy, Unknown, 11/14/22) Home Meds Reported Medications Sotalol Hcl (Sotalol Hcl) 80 Mg Tab, 0.5 TAB PO BID, TAB 08/01/24 Biotin (Vitamin H) (Biotin) Pow, 1 XX DAILY, POW 11/14/22 Potassium (Gnp Potassium) 99 Mg Tab, 99 MG PO DAILY, TAB 11/14/22 B-Complex Vitamins (VITAMIN B-COMPLEX) Vitamin Tab, 1 OR DAILY, TAB 11/14/22 Lactobacillus (PROBIOTIC) Cap, 1 OR DAILY, CAP 11/14/22 Cholecalciferol (VITAMIN D3) 5,000 Unit Cap, 5000 UNIT PO DAILY, CAP 11/14/22 Multiple Vitamins W/ Minerals (Centrum Silver) Silver Tab, 1 PO DAILY, TAB 11/14/22 Krill Oil (Krill Oil) 1,000 Mg Cap, 1000 MG PO DAILY, CAP 11/14/22 Calcium (Calcium) 600 Mg Tab, 1800 MG PO BID, TAB 11/14/22 Levothyroxine Sodium (Levothyroxine Sodium) 112 Mcg Tab, 112 MCG PO QAM for 30 Days, MCG 06/30/19 Lisinopril (Lisinopril) 40 Mg Tab, 40 MG PO DAILY for 30 Days, MG 06/30/19 Information Source: Patient, Emergency Med Personnel Mode of Arrival: EMS Past Medical History PAST MEDICAL HISTORY: HTN, Thyroid Surgical History (Other): Right total knee replacement MANAGER USER EXPERIENCE History: No Pertinent MANAGER USER EXPERIENCE History Family History Family History: Reviewed,noncontributory to illness Social History Smoker: Non-Smoker Alcohol: Denies ETOH Use Drugs: Denies Drug Use Lives In: Home Constitutional: denies: chills, diaphoresis, fatigue, fever, malaise, sweats, weakness, others EENTM: denies: blurred vision, double vision, ear bleeding, ear discharge, ear drainage, ear pain, ear ringing, eye pain, eye redness, hearing loss, mouth pain, mouth swelling, nasal discharge, nose bleeding, nose congestion, nose pain, photophobia, tearing, throat pain, throat swelling, voice changes, others Respiratory: denies: cough, hemoptysis, orthopnea, SOB at rest, shortness of breath, SOB with excertion, stridor, wheezing, others Cardiovascular: denies: chest pain, dizzy spells, diaphoresis, Dyspnea on exertion, edema, irregular heart beat, left arm pain, lightheadedness, palpitations, PND, syncope, others Gastrointestinal: denies: abdomen distended, abdominal pain, blood streaked bowels, constipated, diarrhea, dysphagia, difficulty swallowing, hematemesis, melena, nausea, poor appetite, poor fluid intake, rectal bleeding, rectal pain, vomiting, others Genitourinary: denies: abnormal vagina bleeding, burning, dyspareunia, dysuria, flank pain, frequency, hematuria, incontinence, pain, , vagina discharge, urgency, others Neurological: denies: dizziness, fainting, headache, left sided numbness, left sided weakness, numbness, paresthesia, pre-existing deficit, right sided numbness, right sided weakness, seizure, speech problems, tingling, tremors, weakness, others Musculoskeletal: denies: back pain, gout, joint pain, joint swelling, muscle pain, muscle stiffness, neck pain, others Integumetry: reports: change in color (RLE); denies: bruises, change in hair/nails, dryness, laceration, lesions, lumps, rash, wounds, others Allergic/Immunocompromised: denies: Difficulty Healing, Frequent Infections, Hives, Itching, others Hematologic/Lymphatic: denies: anemia, blood clots, easy bleeding, easy bruising, swollen glands, others Endocrine: denies: excessive hunger, excessive sweating, excessive thirst, excessive urination, flushing, intolerance to cold, intolerance to heat, unexplained weight gain, unexplained weight loss, others Psychiatric: denies: anxiety, bipolar disorder, depression, hopeless, panic disorder, schizophrenia, sleepless, suicidal, others All Other Systems: Reviewed and Negative (Comprehensive systems review obtained and negative except for what is stated in the HPI.) Physical Exam General Appearance: No Apparent Distress, Obese HEENT: Other (Unremarkable) Neck: Full Range of Motion, Normal Inspection Respiratory: Lungs Clear, No Accessory Muscle Use, No Respiratory Distress, Normal Breath Sounds Cardiovascular: No JVD, Regular Rate/Rhythm Breast Exam: Deferred Gastrointestinal: Non Tender, Soft Genitalia: Deferred Pelvic: Deferred Rectal: Deferred Extremities: Calf tenderness, Leg edema, Pedal edema, Swelling, Tender, Other (Right lower extremity pitting edema, mild diffuse soft tissue tenderness, bruising on the anterior medial aspect. The right anterior knee surgical wound has some serous discharge on the dressing) Neurologic: Alert (Oriented x4), Normal Affect, Normal Mood, Other (Moves all extremities. No gross focal deficit.) Cerebellar Function: NOT DONE Reflexes: NOT DONE Skin: Bruises (Right lower extremity anteromedial aspect knee), Warm, Wounds (Right knee surgical wound appears intact with dalila in place. There is some serosanguineous discharge on the dressing. There is minimal erythema at the proximal portion of the surgical wound on the lateral side. There was no fluctuance. There is moderate wound site tenderness.) Lymphatic: NOT DONE Was a procedure done? Was a procedure done?: No Differential Diagnosis EXT Differential Diagnosis: Cellulitis, CHF, Deep Vein Thrombosis, Bursitis Other Differential Diagnosis Hardware infection, among others X-Ray, Labs, Meds, VS Vital Signs Date Time Temp Pulse Resp B/P (MAP) Pulse Ox O2 Delivery O2 Flow Rate FiO2 08/12/24 21:50 75 9 98 Room Air* 0 21 08/12/24 21:50 98.5 75 9 143/91 (108) 98 98.5 08/12/24 15:48 98.5 76 18 128/80 (96) 98 08/12/24 15:31 70 Lab Test 08/12/24 20:52 08/12/24 20:10 Range/Units Prothrombin Time 10.9 9.3-11.8 sec Prothrombin Time INR 1.03 0.9-1.15 Activated Partial Thromboplast Time 26.8 24.5-34.5 SEC Lactic Acid Level 1.3 0.4-2.0 mmol/L Troponin I High Sensitivity 4 5 </=34 ng/L White Blood Count 7.8 # 4.4-10.8 10^3/uL Red Blood Count 3.93 L 4.0-5.20 10^6/uL Hemoglobin 12.8 # 12.2-16.2 g/dL Hematocrit 39.5 # 36.0-46.0 % Mean Corpuscular Volume 100.5 H 80.0-100.0 fL Mean Corpuscular Hemoglobin 32.5 H 28.0-32.0 pg Mean Corpuscular Hemoglobin Concent 32.4 32.0-36.0 g/dL Red Cell Distribution Width 15.0 H 11.8-14.3 % Platelet Count 236 140-450 10^3/uL Mean Platelet Volume 8.0 6.9-10.8 fL Neutrophils (%) (Auto) 57.4 37.0-80.0 % Lymphocytes (%) (Auto) 22.3 10.0-50.0 % Monocytes (%) (Auto) 15.2 H 0.0-12.0 % Eosinophils (%) (Auto) 2.4 0.0-7.0 % Basophils (%) (Auto) 2.7 H 0.0-2.0 % Neutrophils # (Auto) 4.5 1.6-8.6 10 ^3/uL Lymphocytes # (Auto) 1.7 0.4-5.4 10 ^3/uL Monocytes # (Auto) 1.2 0-1.3 10 ^3/uL Eosinophils # (Auto) 0.2 0-0.8 10 ^3/uL Basophils # (Auto) 0.2 0-0.2 10 ^3/uL Nucleated Red Blood Cells 0.1 % Sodium Level 139 136-145 mmol/L Potassium Level 4.8 3.5-5.1 mmol/L Chloride Level 107 98-107 mmol/L Carbon Dioxide Level 24 20-31 mmol/L Anion Gap 8 5-15 Blood Urea Nitrogen 21 9-23 mg/dL Creatinine 1.10 H 0.550-1.02 mg/dL Glomerular Filtration Rate Calc 51 >90 mL/min BUN/Creatinine Ratio 19.1 10.0-20.0 Serum Glucose 97 74-106 mg/dL Calcium Level 10.2 8.7-10.4 mg/dL B-Type Natriuretic Peptide 462.25 0-100 pg/mL PROCEDURE(s): RLDVT - RT Lower DVT REASON: rle pain swelling ORDER NUMBER(s): [id number], ACCESSION NUMBER(s): [id number] Right lower extremity venous duplex Clinical History: rle pain swelling Comparison: None Technique: Duplex Doppler evaluation of the deep venous system of the right lower extremity from the common femoral vein to the popliteal vein including color Doppler and spectral/pulsed waveform analysis was performed. Findings: The common femoral vein demonstrates appropriate compressibility and waveform variability. There is compressibility/patency of the great saphenous vein at the proximal thigh. The femoral vein demonstrates appropriate compressibility and waveform variability. The deep femoral vein demonstrates appropriate compressibility and waveform variability. The popliteal vein demonstrates appropriate compressibility and waveform variability. There is normal compressibility at the tibioperoneal trunk. Impression: 1. No right femoropopliteal venous thrombosis. X-Ray, Labs, Meds, VS Comment 78-year-old female with history of hypertension and status post right total knee replacement 1 week ago complaining of worsening right lower extremity swelling and pain Vitals remarkable for BP 143/91 Exam remarkable for right lower extremity edema and soft tissue tenderness. There is what appears to be postoperative bruising around the surgical wound with minimal erythema at proximal/lateral aspect. Serosanguineous discharge on the dressing. Rhythm strip independently interpreted by me: Sinus rhythm, rate 70, no ectopy. Right lower extremity ultrasound negative for DVT Right knee x-rays: Preliminarily interpreted by me. Hardware appears intact. No acute fracture or dislocation seen. CBC unremarkable, metabolic panel remarkable for creatinine 1.1, lactate normal, BNP 462.25, troponins negative Patient treated with the following in the ED: Morphine 4 mg IV, Zofran 4 mg IV, Zosyn 4.5 g IV On re-evaluation, patient states pain has improved. Vitals are stable. Plan is to admit the patient for IV antibiotics to cover possible cellulitis, and orthopedic re-evaluation. Time of 1ST Reevaluation: 22:44 Reevaluation 1ST: Improved Patient Education/Counseling: Diagnosis, Treatment Family Education/Counseling: No Family Present Departure 1 Departure Time of Disposition: 22:44 Impression: Primary Impression: Postoperative wound infection Disposition: 09 ADMITTED INPATIENT Admit to: Med Surg Condition: Guarded Critical Care Note Critical Care Time?: No Stability Stability form required: No Heart Score Heart Score: Heart Score Response (Comments) Value History N/A 0 EKG N/A 0 Age N/A 0 Risk Factors N/A 0 Troponin N/A 0 Total 0 I personally scribed for LINDA LYNN MD ([facility] on 08/12/24 at 22:02. Electronically submitted by Maris Garcia ([facility]). I personally scribed for LINDA LYNN MD ([facility]) on 08/12/24 at 23:24. Electronically submitted by Maris Garcia ([facility]). LINDA LYNN MD Aug 12, 2024 22:02
--- NOTE | 2024-08-12 22:34 | DVH ---
CLINICAL INDICATION: RLE pain/swelling s/p surgery TECHNIQUE: 3 views of the right knee. Comparison: XY R KNEE 3V XRAY on DOS: 08/05/24 FINDINGS/IMPRESSION: Status post right knee arthroplasty. No evidence of hardware complication. Superficial skin dalila are seen. Small effusion, likely postoperative
[2024-08-12] MEDS: PIPERACILLIN-TAZO 4.5GM 100 ML IV ONE (23:28)
[2024-08-12] MEDS: ACETAMINOPHEN 325 MG TAB PO ONE (23:28)
[2024-08-13] MEDS ORDERED: ONDANSETRON HCL 4 MG/2 ML VIAL IV PRN
--- NOTE | 2024-08-13 00:14 | DVHHPRES ---
History of Present Illness Resident Creating Document: ADDIE ADAMS RESIDENT Reason for Visit: Right leg pain and swelling History of Present Illness This is a 78-year-old female who was brought in by the EMS with chief complain of right extremity pain and swelling. She has a past medical history relevant for status post surgery on the right knee for degenerative joint disease of the knee which was performed on 08/06/2024. Patient stated that for the next couple of days she continued to experience pain and significant swelling, denied any ch ills, fevers, and general malaise. She stated that she is unable to walk due to pain. Denies any chest pain, shortness of breath. PMH: Hypertension, Atrial fibrillation, Hypothyroidism, Obesity, pacemaker implantation PSH: Status post surgery on the right knee for degenerative joint disease of the knee. SH: Denied Allergies: Aspirin, ciprofloxacin and furosemide Cardiovascular: AFIB, HTN Endocrine: Hypothyroidism Smoke: No ALCOHOL: none Drugs: None Review of Systems Constitutional: No: Fever, Chills, Sweats, Weakness, Malaise, Other Eyes: No: Pain, Vision change, Conjunctivae inflammation, Eyelid inflammation, Other, Redness ENT: No: Ear pain, Ear discharge, Nose pain, Nose discharge, Nose congestion, Mouth pain, Mouth swelling, Throat pain, Throat swelling, Other Respiratory: No: Cough, Dry, Shortness of breath, SOB with excertion, Wheezing, Hemoptysis, Pleuritic Pain, Sputum, Wheezing, Other Cardiovascular: No: Chest Pain, Palpitations, Orthopnea, Paroxysmal Noc. Dyspnea, Edema, Lt Headedness, Other Gastrointestinal: No: Nausea, Vomiting, Abdominal Pain, Diarrhea, Constipation, Melena, Hematochezia, Other Genitourinary: No Dysuria, No Frequency, No Incontinence, No Hematuria, No Retention, No Other Musculoskeletal: leg pain; No: other, neck pain, shoulder pain, arm pain, back pain, hand pain, foot pain Skin: No: Rash, Lesions, Jaundice, Bruising, Other Neurological: No: Weakness, Numbness, Incoordination, Change in speech, Confusion, Seizures, Other Allergies: Coded Allergies: Furosemide (Verified Allergy, Intermediate, 11/14/22) itching/hives Aspirin (Verified Allergy, Unknown, 11/14/22) Ciprofloxacin (Verified Allergy, Unknown, 11/14/22) Medications Current Medications Medications Dose Ordered Sig/María Route Start Time Stop Time Status Last Admin Dose Admin Acetaminophen 650 mg Q6HP PRN PO 08/13/24 00:00 UNV Acetaminophen/ Hydrocodone Bitart 1 tab Q6HPRN PRN PO 08/13/24 00:00 UNV Ondansetron HCl 4 mg Q4HPRN PRN IV 08/13/24 00:00 UNV Piperacillin Sod/ Tazobactam Sod 100 ml @ 25 mls/hr Q8HR IV 08/13/24 06:00 UNV Exam Vital Signs Vital Signs Date Time Temp Pulse Resp B/P (MAP) Pulse Ox O2 Delivery O2 Flow Rate FiO2 08/12/24 21:50 75 9 98 Room Air* 0 21 08/12/24 21:50 98.5 143/91 (108) 98.5 General Appearance: Alert, Oriented X3, Cooperative, No acute distress HEENT: Atraumatic, PERRLA, EOMI, Mucous membr. moist/pink Respiratory: Clear to auscultation, Normal air movement Cardiovascular: Regular rate, Normal S1, Normal S2 Abdominal: Normal bowel sounds, Soft Extremities: No clubbing, No cyanosis, Normal pulses, Other (right leg pitting edema (++), surgical wound draining purulent fluid) Skin: No rashes, No breakdown Neuro: Normal gait, Normal speech, Strength at 5/5 X4 ext, Normal tone Psych/Mental Status: Mental status NL, Mood NL Labs/Xrays Labs Test 08/12/24 20:52 08/12/24 20:10 Range/Units Prothrombin Time 10.9 9.3-11.8 sec Prothrombin Time INR 1.03 0.9-1.15 Activated Partial Thromboplast Time 26.8 24.5-34.5 SEC Lactic Acid Level 1.3 0.4-2.0 mmol/L Troponin I High Sensitivity 4 </=34 ng/L White Blood Count 7.8 # 4.4-10.8 10^3/uL Red Blood Count 3.93 L 4.0-5.20 10^6/uL Hemoglobin 12.8 # 12.2-16.2 g/dL Hematocrit 39.5 # 36.0-46.0 % Mean Corpuscular Volume 100.5 H 80.0-100.0 fL Mean Corpuscular Hemoglobin 32.5 H 28.0-32.0 pg Mean Corpuscular Hemoglobin Concent 32.4 32.0-36.0 g/dL Red Cell Distribution Width 15.0 H 11.8-14.3 % Platelet Count 236 140-450 10^3/uL Mean Platelet Volume 8.0 6.9-10.8 fL Neutrophils (%) (Auto) 57.4 37.0-80.0 % Lymphocytes (%) (Auto) 22.3 10.0-50.0 % Monocytes (%) (Auto) 15.2 H 0.0-12.0 % Eosinophils (%) (Auto) 2.4 0.0-7.0 % Basophils (%) (Auto) 2.7 H 0.0-2.0 % Neutrophils # (Auto) 4.5 1.6-8.6 10 ^3/uL Lymphocytes # (Auto) 1.7 0.4-5.4 10 ^3/uL Monocytes # (Auto) 1.2 0-1.3 10 ^3/uL Eosinophils # (Auto) 0.2 0-0.8 10 ^3/uL Basophils # (Auto) 0.2 0-0.2 10 ^3/uL Nucleated Red Blood Cells 0.1 % Sodium Level 139 136-145 mmol/L Potassium Level 4.8 3.5-5.1 mmol/L Chloride Level 107 98-107 mmol/L Carbon Dioxide Level 24 20-31 mmol/L Anion Gap 8 5-15 Blood Urea Nitrogen 21 9-23 mg/dL Creatinine 1.10 H 0.550-1.02 mg/dL Glomerular Filtration Rate Calc 51 >90 mL/min BUN/Creatinine Ratio 19.1 10.0-20.0 Serum Glucose 97 74-106 mg/dL Calcium Level 10.2 8.7-10.4 mg/dL B-Type Natriuretic Peptide 462.25 0-100 pg/mL Assessment/Plan Assessment/Plan # right leg pain and swelling, status post right total knee replacement, possible cellulitis, surgical wound infection, DVT Lower extremity Doppler ruled out DVT Continue Zosyn IV pain medication prn MRSA swab Wound culture Blood culture Orthopedic consult Keep NPO #Hypertension, controlled Monitor #h/o Afib, controlled rate [id number]: 3pts, held anticoagulation for now Continue sotalol 40mg po bid # hypothyroidism continue 112mcg po qd Goals care were discussed for over 30 minutes. Full code Case was discussed with Dr. Smith Plan discussed with: Patient My Orders Orders - ADDIE ADAMS RESIDENT Procedure Category Date Status Time Admit ADMIT 08/12/24 Transmitted 23:56 Notify Md Of Changes BART 08/12/24 In Process From [facility] 23:56 Acetaminophen Tablet PHA 08/13/24 Logged (Tylenol Tablet) 00:00 Hydrocodone-Acet PHA 08/13/24 Logged 5/325mg Tab ([place] 00:00 Ondansetron Hcl PHA 08/13/24 Logged (Zofran) 00:00 Complete Blood Count LAB 08/13/24 Logged 04:00 Basic Metabolic Panel LAB 08/13/24 Logged 04:00 Urinalysis LAB 08/13/24 Logged 00:00 Chest Portable XY 08/13/24 Logged 00:00 Mrsa Screen KARLOS 08/13/24 Logged 00:00 Lactic Acid W/ Reflex LAB 08/13/24 Logged Order 04:00 Piperacillin-Tazob PHA 08/13/24 Logged 3.375gm (Zosyn 3.375g 06:00 Npo Except For BART 08/13/24 Transmitted Medications 00:11 Date of Service: Aug 12, 2024 Billing Provider: TRIPP SMITH MD Common Visit Codes: [id number] INP/OBS CARE (HIGH) Secondary Visit Codes: [id number] CARE PLAN 30 MINUTES ADDIE ADAMS RESIDENT Aug 13, 2024 00:14 TRIPP SMITH MD Aug 13, 2024 09:45
--- NOTE | 2024-08-13 00:52 | DVH ---
CHEST RADIOGRAPH Indication: sob Technique: Single frontal view of the chest was obtained COMPARISON: XY CHEST PORTABLE on DOS: 11/17/22 FINDINGS: Lines and Tubes: Left-sided pacemaker/AICD in place. Lungs: Clear Pleura: No effusion. No pneumothorax. Cardiomediastinal contours: Unremarkable Bones: Unremarkable IMPRESSION: 1. No acute disease.
[2024-08-13 03:31] LABS: Urine Bacteria None Seen /hpf (None Seen)
[2024-08-13 04:12] LABS: Basophils # (auto) 0.1 10 ^3/uL (0-0.2); Basophils % (auto) 1.4 % (0.0-2.0); Eosinophils # (auto) 0.2 10 ^3/uL (0-0.8); Eosinophils % (auto) 2.8 % (0.0-7.0); Hematocrit 38.6 % (36.0-46.0); Hemoglobin 12.6 g/dL (12.2-16.2); Lymphocytes # (auto) 1.7 10 ^3/uL (0.4-5.4); Lymphocytes % (auto) 22.6 % (10.0-50.0); Mean Corpuscular Hemoglobin 32.7 pg (28.0-32.0); Mean Corpuscular Hgb Conc. 32.7 g/dL (32.0-36.0); Monocytes # (auto) 0.9 10 ^3/uL (0-1.3); Monocytes % (auto) 12.5 % (0.0-12.0); Neutrophils # (auto) 4.5 10 ^3/uL (1.6-8.6); Neutrophils % (auto) 60.7 % (37.0-80.0); Nucleated Red Blood Cells % 0.1 %; Platelet Count (auto) 288 10^3/uL (140-450); Red Blood Cells 3.86 10^6/uL (4.0-5.20); Red Cell Distribution Width 14.5 % (11.8-14.3); White Blood Cell 7.5 10^3/uL (4.4-10.8)
[2024-08-13 04:12] LABS: Urine Blood Negative /uL (Negative); Urine Clarity Clear (Clear); Urine Color Yellow (Yellow); Urine Protein, UAD Negative (Negative); Urine Specific Gravity 1.017 (1.001-1.035); Urine Squamous Epithelial Cell None Seen /hpf (<5); Urine Urobilinogen Normal (Negative); Urine WBC 1 /hpf (0 - 5)
[2024-08-13 04:24] LABS: Potassium 4.2 mmol/L (3.5-5.1); Sodium 137 mmol/L (136-145)
[2024-08-13 04:25] LABS: Anion Gap 11 (5-15); Calcium 10.1 mg/dL (8.7-10.4)
--- NOTE | 2024-08-13 04:25 | ECG ---
[facility] Test Date: 2024-08-13 Test Time: 04:21:27 Pat Name: LYNNETTE MAIN Department: ED Room: [address] [place] [address] Gender: F Home Visit Field Care Manager: CHILO : 1945 Requested By: ADDIE BURNETTE Order Number: [id number] Reading MD: Measurements Intervals [place] Rate: 96 P: 254 WV: 130 QRS: 262 QRSD: 185 T: 78 QT: 437 QTc: 553 Interpretive Statements A-V dual-paced complexes w/ some inhibition No further analysis attempted due to paced rhythm Please click the below link to view image of tracing.
[2024-08-13 04:30] LABS: BUN/Creatinine Ratio 12.9 (10.0-20.0); Blood Urea Nitrogen 13 mg/dL (9-23); Glucose 96 mg/dL (74-106)
[2024-08-13 04:42] LABS: Carbon Dioxide 18 mmol/L (20-31); Chloride 108 mmol/L (98-107)
[2024-08-13] MEDS: ACETAMINOPHEN 325 MG TAB PO PRN (04:49)
[2024-08-13] MEDS ORDERED: PIPERACILLIN-TAZOB 3.375GM 100 ML IV SCH (06:00)
[2024-08-13] MEDS: LEVOTHYROXINE SODIUM 112 MCG TAB PO SCH (06:42)
[2024-08-13] MEDS: PIPERACILLIN-TAZOB 3.375GM 100 ML IV SCH (06:42)
[2024-08-13 07:45] VITALS: PULSE 88; RESP 20; O2SAT 98
[2024-08-13] MEDS: SOTALOL HCL 80 MG TAB PO SCH (12:14)
--- NOTE | 2024-08-13 12:18 | DVHPN2 ---
Progress Note Date Seen: Aug 13, 2024 Medical Necessity Reason Pt with a Central, PICC or Fol: No Subjective Patient reports: No new complaints Review of Systems: HEENT:Normal, CVS:Normal, RESPIRATORY:Normal, GI:Normal, :Normal, MSK:Normal, NEURO:Normal Objective vital signs Vital Sign Date Time Temp Pulse Resp B/P (MAP) Pulse Ox O2 Delivery O2 Flow Rate FiO2 08/13/24 12:14 107 119/74 08/13/24 11:00 19 96 08/13/24 07:45 97.8 97.8 08/13/24 07:45 Room Air* 0 21 Total Intake and Output 08/12/24 08/12/24 08/13/24 15:00 23:00 07:00 Intake Total 100 ml Balance 100 ml medications Current Medications Medications Dose Ordered Sig/María Route Start Time Stop Time Status Last Admin Dose Admin Acetaminophen 650 mg Q6HP PRN PO 08/13/24 00:00 08/13/24 04:49 650 MG Acetaminophen/ Hydrocodone Bitart 1 tab Q6HPRN PRN PO 08/13/24 00:00 Ondansetron HCl 4 mg Q4HPRN PRN IV 08/13/24 00:00 Levothyroxine Sodium 112 mcg QAM PO 08/13/24 07:00 08/13/24 06:42 112 MCG Sotalol HCl 40 mg BID PO 08/13/24 10:00 08/13/24 12:14 40 MG Piperacillin Sod/ Tazobactam Sod 100 ml @ 25 mls/hr Q8H IV 08/13/24 07:00 08/13/24 06:42 25 MLS/HR Examination: GENERAL:Normal, HEENT:Normal, NECK:Normal, LUNGS:Normal, CVS:Normal, ABDOMEN:Normal, MSK:Normal, MSK:Abnormal (right knee swelling, redness), SKIN:Normal, NEURO:Normal, :Normal laboratory and microbiology Laboratory Tests 08/13/24 03:50 Test 08/13/24 03:50 Range/Units Serum Glucose 96 74-106 mg/dL Problem List/Assessment/Plan Problem List/Assessment/Plan #1 s/p right knee surgery with cellulitis; iv zosyn, ortho eval #2 Hypertension. #3 Atrial fibrillation. #4 Hypothyroidism. #5 Obesity. advance care planning - full code-time spent 19 mins Plan discussed with: Patient My Orders My Orders Orders - MADELIN MINOR MD Procedure Category Date Status Time Enoxaparin Sodium PHA 08/14/24 Verified (Lovenox) 10:00 Enoxaparin Sodium PHA 08/13/24 Verified (Lovenox) 12:15 Date of Service: Aug 13, 2024 Billing Provider: MADELIN MINOR MD Common Visit Codes: [id number] INP/OBS CARE(HIGH) Secondary Visit Codes: [id number] CARE PLAN 30 MINUTES MADELIN MINOR MD Aug 13, 2024 12:18
[2024-08-13] MEDS: ENOXAPARIN SOD 40 MG/0.4 ML SYRINGE SC ONE (12:49)
--- NOTE | 2024-08-13 14:03 | DVHINCON2 ---
Date of service: Aug 13, 2024 Reason for Consultation S/P right total knee arthroplasty swelling and pain History of Present Illness Mrs. Funes is a 78-year-old female who came to the hospital due to concerns of an infection to her right knee after undergoing a right total knee arthroplasty with Dr. Kearney approximately one week ago. Patient reports that she was at the nursing facility recovering when she was told by her caregiver that they were concerned of a possible infection given her swelling and pain and advised her to come to the hospital for further evaluation. Patient reports that she has been able to get up and walk with the help of a walker and while she is walking the pain does not as intense but feels pain mainly when she 1st starts walking when she 1st gets up. Patient is otherwise feeling well denying any other complaint or concern during my evaluation. Past Medical History Hypertension, Atrial fibrillation, Hypothyroidism, Obesity, pacemaker implantation Past Surgical History Right total knee arthroplasty Family History: Alcoholism Hypertension G8 MOTHER G8 FATHER Family History Noncontributory Social History Patient denied smoking, EtOH, or illicit substance abuse Allergies: Coded Allergies: Furosemide (Verified Allergy, Intermediate, 11/14/22) itching/hives Aspirin (Verified Allergy, Unknown, 11/14/22) Ciprofloxacin (Verified Allergy, Unknown, 11/14/22) Home Meds Reported Medications Sotalol Hcl (Sotalol Hcl) 80 Mg Tab, 0.5 TAB PO BID, TAB 08/01/24 Biotin (Vitamin H) (Biotin) Pow, 1 XX DAILY, POW 11/14/22 Potassium (Gnp Potassium) 99 Mg Tab, 99 MG PO DAILY, TAB 11/14/22 B-Complex Vitamins (VITAMIN B-COMPLEX) Vitamin Tab, 1 OR DAILY, TAB 11/14/22 Lactobacillus (PROBIOTIC) Cap, 1 OR DAILY, CAP 11/14/22 Cholecalciferol (VITAMIN D3) 5,000 Unit Cap, 5000 UNIT PO DAILY, CAP 11/14/22 Multiple Vitamins W/ Minerals (Centrum Silver) Silver Tab, 1 PO DAILY, TAB 11/14/22 Krill Oil (Krill Oil) 1,000 Mg Cap, 1000 MG PO DAILY, CAP 11/14/22 Calcium (Calcium) 600 Mg Tab, 1800 MG PO BID, TAB 11/14/22 Levothyroxine Sodium (Levothyroxine Sodium) 112 Mcg Tab, 112 MCG PO QAM for 30 Days, MCG 06/30/19 Lisinopril (Lisinopril) 40 Mg Tab, 40 MG PO DAILY for 30 Days, MG 06/30/19 Current Medications Current Medications Medications (Trade) Dose Ordered Sig/María Route PRN Reason Start Time Stop Time Status Last Admin Acetaminophen (Tylenol Tablet) 650 mg Q6HP PRN PO MILD PAIN (1-3 PAIN SCALE) 08/13/24 00:00 08/13/24 04:49 Acetaminophen/ Hydrocodone Bitart ([place] 5/325MG Tab) 1 tab Q6HPRN PRN PO MODERATE PAIN (4-6 PAIN SCALE) 08/13/24 00:00 Ondansetron HCl (Zofran) 4 mg Q4HPRN PRN IV NAUSEA / VOMITING 08/13/24 00:00 Piperacillin Sod/ Tazobactam Sod 100 ml @ 25 mls/hr Q8HR IV 08/13/24 06:00 08/13/24 05:13 DC Levothyroxine Sodium (Synthroid Tablet) 112 mcg QAM PO 08/13/24 07:00 08/13/24 06:42 Sotalol HCl (Betapace) 40 mg BID PO 08/13/24 10:00 08/13/24 12:14 Piperacillin Sod/ Tazobactam Sod 100 ml @ 25 mls/hr Q8H IV 08/13/24 07:00 08/13/24 06:42 Enoxaparin Sodium (Lovenox) 40 mg DAILY SC 08/14/24 10:00 Review of Systems 10 point review of systems negative except as per HPI Vital Signs Vital Signs Date Time Temp Pulse Resp B/P (MAP) Pulse Ox O2 Delivery O2 Flow Rate FiO2 08/13/24 12:14 107 119/74 08/13/24 11:00 19 96 08/13/24 07:45 97.8 97.8 08/13/24 07:45 Room Air* 0 21 Physical Exam General appearance: A&O x4 in no acute distress HEENT: Normal ENT inspection, pharynx normal, TMs normal Neck: Full range of motion, nontender, normal inspection Respiratory: Chest nontender, without accessory muscle use, no respiratory distress Cardiovascular: No edema, no JVD, normal peripheral pulses Gastrointestinal: Soft, nontender, no organomegaly. Musculoskeletal: Right knee range of motion grossly limited with pain on movement, dressings clean, dry, and intact, no calf tenderness, normal capillary refill, no pedal edema, neurovascularly intact. Skin: Dry, normal color, warm Lymphatic: No adenopathy Labs/Diagnostic Data Labs Test 08/13/24 03:50 08/13/24 03:22 08/12/24 20:52 08/12/24 20:10 Range/Units White Blood Count 7.5 4.4-10.8 10^3/uL Red Blood Count 3.86 L 4.0-5.20 10^6/uL Hemoglobin 12.6 12.2-16.2 g/dL Hematocrit 38.6 36.0-46.0 % Mean Corpuscular Volume 100.0 80.0-100.0 fL Mean Corpuscular Hemoglobin 32.7 H 28.0-32.0 pg Mean Corpuscular Hemoglobin Concent 32.7 32.0-36.0 g/dL Red Cell Distribution Width 14.5 H 11.8-14.3 % Platelet Count 288 140-450 10^3/uL Mean Platelet Volume 8.1 6.9-10.8 fL Neutrophils (%) (Auto) 60.7 37.0-80.0 % Lymphocytes (%) (Auto) 22.6 10.0-50.0 % Monocytes (%) (Auto) 12.5 H 0.0-12.0 % Eosinophils (%) (Auto) 2.8 0.0-7.0 % Basophils (%) (Auto) 1.4 0.0-2.0 % Neutrophils # (Auto) 4.5 1.6-8.6 10 ^3/uL Lymphocytes # (Auto) 1.7 0.4-5.4 10 ^3/uL Monocytes # (Auto) 0.9 0-1.3 10 ^3/uL Eosinophils # (Auto) 0.2 0-0.8 10 ^3/uL Basophils # (Auto) 0.1 0-0.2 10 ^3/uL Nucleated Red Blood Cells 0.1 % Sodium Level 137 136-145 mmol/L Potassium Level 4.2 3.5-5.1 mmol/L Chloride Level 108 H 98-107 mmol/L Carbon Dioxide Level 18 L 20-31 mmol/L Anion Gap 11 5-15 Blood Urea Nitrogen 13 9-23 mg/dL Creatinine 1.01 0.550-1.02 mg/dL Glomerular Filtration Rate Calc 57 >90 mL/min BUN/Creatinine Ratio 12.9 10.0-20.0 Serum Glucose 96 74-106 mg/dL Lactic Acid Level 1.2 0.4-2.0 mmol/L Calcium Level 10.1 8.7-10.4 mg/dL Urine Color Yellow Yellow Urine Clarity Clear Clear Urine pH 6.0 5.0-9.0 Urine Specific [place] 1.017 1.001-1.035 Urine Protein Negative Negative Urine Ketones Negative Negative Urine Blood Negative Negative /uL Urine Nitrite Negative Negative Urine Bilirubin Negative Negative Urine Urobilinogen Normal Negative mg/dL Urine Leukocyte Esterase Negative Negative /uL Urine RBC <1 0 - 4 /hpf Urine WBC 1 0 - 5 /hpf Urine Squamous Epithelial Cells None seen <5 /hpf Urine Bacteria None seen None Seen /hpf Urine Glucose Normal Normal mg/dL Prothrombin Time 10.9 9.3-11.8 sec Prothrombin Time INR 1.03 0.9-1.15 Activated Partial Thromboplast Time 26.8 24.5-34.5 SEC Troponin I High Sensitivity 4 </=34 ng/L B-Type Natriuretic Peptide 462.25 0-100 pg/mL Right lower extremity venous Doppler ultrasound reviewed and demonstrated: No right femoropopliteal venous thrombosis. Right knee x-ray reviewed and demonstrated: Status post right knee arthroplasty. No evidence of hardware complication. Superficial skin dalila are seen. Small effusion, likely postoperative Assessment S/P Right total knee arthroplasty Plan/Recommendation I had a lengthy discussion with the patient and after discussing her case and reviewing her imaging studies with Dr. Kearney we have recommended continuing with observation and conservative treatment as my clinical suspicion for an infected postoperative knee is low given her white blood cell count has been within normal limits she has been afebrile and has been able to walk with the assistance of a walker albeit with some pain. I advised the patient to remain weight-bearing as tolerated with the assistance of a walker and to continue the use of her CPM machine as well and to ice as needed. I also instructed the patient to follow up with Dr. Kearney as previously scheduled next Monday. She understood and agreed. Thank you for allowing us to participate in the care of your patient. Plan discussed with: Patient GAVIN SKAGGS Donato MITCHELL Aug 13, 2024 14:03
[2024-08-13] MEDS: HYDROcodone-ACET 5/325MG TAB PO PRN (14:36)
[2024-08-13 15:29] VITALS: BP 100/50; TEMP 98
[2024-08-13 15:34] VITALS: PULSE 88; RESP 20; O2SAT 98
--- NOTE | 2024-08-13 16:25 | DVHDS2 ---
Discharge Summary Date of Admission Aug 12, 2024 at 23:56 Date of Discharge: Aug 13, 2024 Labs/Diagnostic Data: Laboratory Results Test 08/13/24 03:50 08/13/24 03:22 08/12/24 20:52 08/12/24 20:10 White Blood Count 7.5 10^3/uL (4.4-10.8) Red Blood Count 3.86 10^6/uL (4.0-5.20) Hemoglobin 12.6 g/dL (12.2-16.2) Hematocrit 38.6 % (36.0-46.0) Mean Corpuscular Volume 100.0 fL (80.0-100.0) Mean Corpuscular Hemoglobin 32.7 pg (28.0-32.0) Mean Corpuscular Hemoglobin Concent 32.7 g/dL (32.0-36.0) Red Cell Distribution Width 14.5 % (11.8-14.3) Platelet Count 288 10^3/uL (140-450) Mean Platelet Volume 8.1 fL (6.9-10.8) Neutrophils (%) (Auto) 60.7 % (37.0-80.0) Lymphocytes (%) (Auto) 22.6 % (10.0-50.0) Monocytes (%) (Auto) 12.5 % (0.0-12.0) Eosinophils (%) (Auto) 2.8 % (0.0-7.0) Basophils (%) (Auto) 1.4 % (0.0-2.0) Neutrophils # (Auto) 4.5 10 ^3/uL (1.6-8.6) Lymphocytes # (Auto) 1.7 10 ^3/uL (0.4-5.4) Monocytes # (Auto) 0.9 10 ^3/uL (0-1.3) Eosinophils # (Auto) 0.2 10 ^3/uL (0-0.8) Basophils # (Auto) 0.1 10 ^3/uL (0-0.2) Nucleated Red Blood Cells 0.1 % Sodium Level 137 mmol/L (136-145) Potassium Level 4.2 mmol/L (3.5-5.1) Chloride Level 108 mmol/L (98-107) Carbon Dioxide Level 18 mmol/L (20-31) Anion Gap 11 (5-15) Blood Urea Nitrogen 13 mg/dL (9-23) Creatinine 1.01 mg/dL (0.550-1.02) Glomerular Filtration Rate Calc 57 mL/min (>90) BUN/Creatinine Ratio 12.9 (10.0-20.0) Serum Glucose 96 mg/dL (74-106) Lactic Acid Level 1.2 mmol/L (0.4-2.0) Calcium Level 10.1 mg/dL (8.7-10.4) Urine Color Yellow (Yellow) Urine Clarity Clear (Clear) Urine pH 6.0 (5.0-9.0) Urine Specific [place] 1.017 (1.001-1.035) Urine Protein Negative (Negative) Urine Ketones Negative (Negative) Urine Blood Negative /uL (Negative) Urine Nitrite Negative (Negative) Urine Bilirubin Negative (Negative) Urine Urobilinogen Normal mg/dL (Negative) Urine Leukocyte Esterase Negative /uL (Negative) Urine RBC <1 /hpf (0 - 4) Urine WBC 1 /hpf (0 - 5) Urine Squamous Epithelial Cells None seen /hpf (<5) Urine Bacteria None seen /hpf (None Seen) Urine Glucose Normal mg/dL (Normal) Prothrombin Time 10.9 sec (9.3-11.8) Prothrombin Time INR 1.03 (0.9-1.15) Activated Partial Thromboplast Time 26.8 SEC (24.5-34.5) Troponin I High Sensitivity 4 ng/L (</=34) B-Type Natriuretic Peptide 462.25 pg/mL (0-100) Other Laboratory Tests 08/13/24 03:50 Brief Hx & Hospital Course: SEE DICTATED NOTE Condition at Discharge: Fair Final Diagnosis/Problems List RIGHT KNEE PAIN Discharge Disposition: Home with Health Services Discharge Instruct/Medications Diet: Cardiac 2g Na,low cholest Activity: No Restrictions, As Tolerated Follow Up/Referral: FU WITH DR KAMARA Medications: RESUME HOME MEDS Discharge Statement: "Patient was advised to return to the ER or call 911 if any headaches, dizziness, shortness of breath, chest pain, abdominal pain, bleeding, fevers, or worsening of medical condition. Patient was counseled about treatment plan, medications, possible side effects, patientverbalized understanding. All questions were answered to the best of my ability. This discharge took greater then 30 minutes in planning, reviewing documentation, counseling the patient, and discussing with other team members." ASSESSMENT ASSESSMENT Assessment RIGHT KNEE PAIN Date of Service: Aug 13, 2024 Billing Provider: MADELIN MINOR MD Common Visit Codes: [id number] DISCH DAY >30min MADELIN MINOR MD Aug 13, 2024 16:25
--- NOTE | 2024-08-13 17:19 | DVHDS ---
DATE OF DISCHARGE: 08/13/2024 HISTORY OF PRESENT ILLNESS: The patient is a 78-year-old lady, who had recent right knee surgery, who came with complaints of pain in the right knee. There was also some swelling. The patient has history of atrial fibrillation, hypertension, and hypothyroidism. HOSPITAL COURSE: The patient had x-ray of the knee that was unremarkable. White count was within normal limits. The patient's Doppler of right lower extremity was negative for DVT. The patient was seen in Orthopedic consult by Dr. Kearney, who recommended no further treatment and outpatient followup. The patient will be discharged to resume her home medications as well as home physical therapy. FINAL DIAGNOSES: Therefore, * Right knee pain, status post right knee surgery. * Hypertension. * Atrial fibrillation. * Hypothyroidism. * Obesity. Time spent in discharge planning and review of plan with the patient and nursing was 37 minutes. MD SNEHA Trejo/CHELSEY TID: [id number] RECEIPT: [id number]
[2024-08-14] MEDS ORDERED: ENOXAPARIN SOD 40 MG/0.4 ML SYRINGE SC SCH (10:00)
== END 2024-08-13 17:04 | disposition home health service (06) | DRG 863 ==
LOC: ER 15:23 → EDBD 15:23 → OVERFLOW 23:56
PROVIDERS: ADMIT Internal Medicine; ATTEND Internal Medicine
DX: T81.41XA Infection following a procedure, superficial incisional surgical site, initial encounter (principal); Z68.41 Body mass index [BMI] 40.0-44.9, adult; L03.115 Cellulitis of right lower limb; E66.9 Obesity, unspecified; I10 Essential (primary) hypertension; Z96.651 Presence of right artificial knee joint; I48.91 Unspecified atrial fibrillation; E03.9 Hypothyroidism, unspecified; Y83.8 Other surgical procedures as the cause of abnormal reaction of the patient, or of later complication, without mention of misadventure at the time of the procedure; Z88.6 Allergy status to analgesic agent; Z88.1 Allergy status to other antibiotic agents; Y92.89 Other specified places as the place of occurrence of the external cause; Z82.49 Family history of ischemic heart disease and other diseases of the circulatory system
CPT/HCPCS: 36415; 71045; 73562; 80048; 81001; 83605; 83880; 84484; 85025; 85610; 85730; 87040; 87205; 93005; 93971; 96365; G0378; J2543

== ENCOUNTER → 2024-09-20 | Outpatient (CLI) | payer MEDICARE, OTHER ==
[~2024-09-20] MED LIST changes: +IOHEXOL 350 MG/ML 100ML IJ ONE
[2024-09-20 09:47] VITALS: BP 136/70; PULSE 66; RESP 16; O2SAT 99
[2024-09-20 10:36] VITALS: BP 124/73; PULSE 65; RESP 16; O2SAT 99
--- NOTE | 2024-09-20 12:07 | DVH ---
CTA Chest with intravenous contrast INDICATION: R/O PE COMPARISON: None TECHNIQUE: Multidetector spiral CTA of the chest was performed of the chest with intravenous contrast . PULMONARY ANGIOGRAPHY PROTOCOL was utilized using a bolus-tracking technique centered on the main p ulmonary artery. Axial, coronal and sagittal multiplanar and MIP reformats were performed. CONTRAST: Type of contrast: Omni 350 Contrast injected: 100 ml Radiation dose : Chest: CTDI volume is 7.65 mGy. Dose-length product is 293.37 mGy*cm The dose indicators for CT are the volume computed Tomography (CT) dose Index (CTDIvol) and the dose Length product (DLP), and are measured in units of mGy and mGy-cm, respectively. These indicators are not patient dose, but values generated from the CT scanner acquisition factors. The report includes radiation exposure data for exposures received during this examination. Findings: Pulmonary artery: No pulmonary embolism Lower neck: Normal thyroid. Lungs: Calcified granuloma right upper lung. Atelectasis and scarring in the lung bases. Heart/Vascular Structures: Normal heart size. No pericardial effusion. Lymph Nodes: No adenopathy Pleura: No pleural effusion or significant pneumothorax. Musculoskeletal: No acute osseous abnormality. Soft tissues: Normal. Upper abdomen: Calcified granuloma in the spleen. IMPRESSION: 1. No pulmonary embolism. 2. Evidence prior granulomatous disease. No suspicious nodule or consolidation. HS:Y
--- NOTE | 2024-09-20 12:46 | DVH ---
CLINICAL INDICATION: 78 years old, Female; KNEE PAIN. TECHNIQUE: Noncontrast CT of the left knee was performed. Sagittal and coronal reformatted images are provided. COMPARISON: None CT Dose: CTDI volume is 18.47 mGy. Dose-length product is 348.03 mGy*cm FINDINGS: Patient is status post a total knee replacement. The components are well aligned and well seated. Th ere is no circumferential lucency to suggest hardware loosening. The polyethylene liner is not displa george. No periprosthetic fracture. Normal alignment of the femorotibial and patellofemoral joints. The bones are demineralized. Diffuse fatty replacement of the muscles. There is knee joint effusion. Linear soft tissue density in the anterior knee compatible with postoperative change. IMPRESSION: 1. Total knee replacement without evidence of hardware compromise, acute osseous abnormality or abnor mal alignment. 2. Knee joint effusion. HS:Y All CT scans at this medical facility are performed using dose modulation techniques as appropriate t o a performed exam including the following: Automated exposure control was utilized; adjustment of th e MA and/or KV according to patient size; and use of iterative reconstruction technique.
== END | disposition home or self-care (01) ==
LOC: Rad HDHVI 09:29
PROVIDERS: ATTEND Internal Medicine Cardiovascular Disease
DX: M25.462 Effusion, left knee (principal); M81.0 Age-related osteoporosis without current pathological fracture; D71 Functional disorders of polymorphonuclear neutrophils; J98.11 Atelectasis; J98.4 Other disorders of lung; D73.89 Other diseases of spleen; Z96.652 Presence of left artificial knee joint
CPT/HCPCS: 71275; 73700; G0463; Q9967

== ENCOUNTER → 2025-05-21 | Outpatient (CLI) | payer MEDICARE, OTHER ==
[~2025-05-21] MED LIST changes: -IOHEXOL 350 MG/ML 100ML IJ ONE
--- NOTE | 2025-05-21 14:03 | DVHSR ---
APPROVED REPORT EXAM: Two-dimensional and M-mode echocardiogram with Doppler and color Doppler. Surgery/Intervention Pacemaker: DIMENSIONS LVDd4.9 (3.8-5.7cm)LA (2D)4.0 (1.9-4.0cm)Aortic Root3.2 (2.0-3.7cm) LVDs3.9 (2.5-4.0cm)LA (MM) (1.9-4.0cm)Aortic Cusp Exc1.8 (1.5-2.0cm) EF (%) 40.0 (55-70%)Rt. Atrium4.7 (1.9-4.0cm)Asc. Aorta cm IVSd0.9 (0.7-1.1cm)RV (D)4.0 (1.8-2.4cm) PWd1.0 (0.7-1.1cm) Mitral Valve MitralMitral Stenosis E wave0.54m/sMV Mean GR.mmHg A wave0.67m/sMV Peak GR.mmHg E/A ratio0.82D MVAcm2 DECEL [id number] 1/2 Timems Aortic Valve Aortic ValveAortic Stenosis V10.56m/Juana Mean GR.3mmHg V21.04m/Juana Peak GR.4mmHg LVOT Diameter2.3 (1.8-2.4cm)Doppler AVA2.24cm2 Pulmonic Valve V20.71m/s Tricuspid Valve TR Velocity2.22m/s [id number] LEFT VENTRICLE The left ventricle is normal size. The left ventricle is normal in structure. The Ejection Fraction is below normal limits. The Ejection Fraction is 30-40%. RIGHT VENTRICLE The right ventricle is normal size. There is a pacemaker lead in the right ventricle. ATRIA The left atrium is enlarged. The right atrium is enlarged. A pacemaker is seen in the right atrium. The interatrial septum is intact with no evidence for an atrial septal defect. MITRAL VALVE The mitral valve is normal in structure. Mitral regurgitation is trace. PULMONIC VALVE The pulmonic valve is not well visualized. TRICUSPID VALVE The tricuspid valve is grossly normal. There is trace to mild tricuspid regurgitation. Right ventricular systolic pressure is less than 30 mmHg. AORTIC VALVE The aortic valve opens well. No aortic regurgitation is present. GREAT VESSELS The aortic root is normal size. PERICARDIAL EFFUSION There is no pericardial effusion. Other Information Technically limited study due to body habitus, patient lying flat. Conclusion EF 40% PACEMAKER LEADS SEEN SHREE
== END | disposition home or self-care (01) ==
LOC: Rad HDHVI 10:53
PROVIDERS: ATTEND Internal Medicine Cardiovascular Disease
DX: I07.1 Rheumatic tricuspid insufficiency (principal); I10 Essential (primary) hypertension; R00.2 Palpitations
CPT/HCPCS: 93306